=== PATIENT | female | born 1950 | race Caucasian/White ===

== ENCOUNTER → 2016-12-06 | Day surgery (SDC) | payer MEDICARE ==
[~2016-12-06] MED LIST: ACETAMINOPHEN 1000 MG/100 ML VIAL IV ONE; BUPIVACAINE/EPINEPHRINE 0.25% 50 ML VIAL ONE; CALC500T17 PO; CIPR-9 PO; HYOS0.37 PO; LACTATED RINGER'S 1000 ML INJ 1,000 ML ONE; LIDOCAINE 1%/EPINEPHrine 1:100,000 SOLN 20 ML VIAL ONE; MELA1TAB18 PO; METR-1 PO; MIDAZOLAM HCL 2 MG/2 ML VIAL ONE; ONDANSETRON HCL 4 MG/2 ML VIAL IV PUSH ONE; PROBCAP11 PO; PROPOFOL 200 MG/20 ML AMP IV ONE; SACC1CAP3 PO; ZOFR4TAB3 SL; ceFAZolin 2 GM PREMIX 50 ML ONE; metroNIDAZOLE 500 MG INJ 100 ML IV ONE
--- NOTE | 2016-12-06 12:23 | TN ---
cc: CARMEL FRENCH MD DATE OF SURGERY: 12/06/2016 PREOPERATIVE DIAGNOSIS Non-healing abdominal surgical wound. POSTOPERATIVE DIAGNOSIS Non-healing abdominal surgical wound. PROCEDURE Revision of abdominal scar. SURGEON Carmel French MAP MOUNTER Manuel Adkins, R-1, Jett, MS III, and Staff. ANESTHESIA General anesthesia via LMA. SPECIMENS None. ESTIMATED BLOOD LOSS 5 cc. PROCEDURE IN DETAIL The patient was taken to the operating room, placed in a supine position. General anesthesia via LMA was induced. The abdomen was prepped and draped in the usual sterile fashion. The patient received perioperative antibiotics. A timeout was performed to verify correct patient, procedure and site. The patient had a scar in the left abdomen from a sigmoid colectomy about three months ago. The medial 3 cm of the wound was not healing well and was causing the patient some discomfort. There was fascial suture visible in the office on her last visit. I performed a 3 cm ellipse around this non-healing area and removed the scar, skin and subcutaneous tissue down to the level of the fascia. The lateral edges were elevated by making small subcutaneous flaps just superior to the fascia. Hemostasis was achieved. The skin was closed with interrupted 3-0 Prolene vertical mattress sutures. Sterile dressing was applied. The patient tolerated the procedure well, was extubated and taken to PACU in stable condition. Carmel French MD JPD/ZAHIDA /10:52 AM /12:15 PM
== END | disposition home or self-care (01) ==
LOC: ESDC 08:04
PROVIDERS: ATTEND Surgery
DX: L90.5 Scar conditions and fibrosis of skin (principal); T81.89XA Other complications of procedures, not elsewhere classified, initial encounter
CPT/HCPCS: 00400; 11403; J0131; J0690; J2250; J2405; J3010; J7120

== ENCOUNTER 2017-09-20 17:22 | Emergency (ER) | payer MEDICARE ==
[~2017-09-20] VITALS: Ht 166.4 cm; Wt 62.1 kg
[~2017-09-20 17:22] MED LIST changes: -ACETAMINOPHEN 1000 MG/100 ML VIAL IV ONE; -BUPIVACAINE/EPINEPHRINE 0.25% 50 ML VIAL ONE; -LACTATED RINGER'S 1000 ML INJ 1,000 ML ONE; -LIDOCAINE 1%/EPINEPHrine 1:100,000 SOLN 20 ML VIAL ONE; -MIDAZOLAM HCL 2 MG/2 ML VIAL ONE; -ONDANSETRON HCL 4 MG/2 ML VIAL IV PUSH ONE; -PROPOFOL 200 MG/20 ML AMP IV ONE; -ceFAZolin 2 GM PREMIX 50 ML ONE; -metroNIDAZOLE 500 MG INJ 100 ML IV ONE
[2017-09-20 17:28] VITALS: BP 157/72; PULSE 99; RESP 18; TEMP 98.8; O2SAT 93
[2017-09-20] MEDS ORDERED: ALBUTEROL INHALER (17:38)
[2017-09-20] MEDS ORDERED: ACETAMINOPHEN 325 MG TAB PO ONE (17:45)
[2017-09-20] MEDS ORDERED: methylPREDNISolone SOD SUCC 125 MG/2 ML VIAL IV PUSH ONE (17:45)
[2017-09-20] MEDS ORDERED: SODIUM CHLORIDE 0.9% FLUSH 10 ML FLUSH IVF PRN (17:45)
[2017-09-20] MEDS ORDERED: SODIUM CHLOR 0.9% 1000 ML INJ 1,000 ML IV ONE (17:45)
--- NOTE | 2017-09-20 17:48 | PD ---
HPI . Cough Chief Complaint: Cold / Flu Symptoms Time Seen by Provider: 17:37 Travel History International Travel<30 days: No Contact w/Intl Traveler<30days: No Traveled to known affect area: No History of Present Illness HPI Patient presents with a chief complaint of cough and fever. She states that she had the onset of cold symptoms approximately 4 days ago. She started running a fever today. MAXIMUM TEMPERATURE was 101 at home just prior to presentation. She states that she has had uterine production but is not currently able to get anything up. She states that she used her albuterol inhaler at home initially with relief of her cough and chest congestion. However, it is no longer helping. Her symptoms are mild. PFSH Past Medical History Anxiety: No Depression: No Cancer: No Cardiovascular Problems: No Chemotherapy: No Diabetes: No Patient Takes Glucophage: No Diminished Hearing: No Diverticulitis: Yes Endocrine: No Gastrointestinal Disorders: Yes (DIVERTICULITIS) Genitourinary: Yes (HEMATURIA; UTI) Hepatitis: No Hiatal Hernia: No Hypertension: No Immune Disorder: No Implanted Vascular Access Dvce: No Medical other: No Musculoskeletal: Yes (MENISCUS REPAIR) Neurologic: No Psychiatric: No Reproductive: No Respiratory: Yes (CHILDHOOD ASTHMA) Radiation Therapy: No Thyroid Disease: No ?: Not Menopausal: Yes : 3 Para: 3 Past Surgical History AICD: No Appendectomy: Yes Gynecologic Surgery: Yes (HYSTYERECTOMY) Hysterectomy: Yes Joint Replacement: No Pacemaker: No Other Surgery: Yes (FOOT SURGERY) Social History Alcohol Use: Yes ("OCCASIONALLY") Tobacco Use: Yes (1 PPD) Substance Use: No Allergies-Medications (Allergen,Severity, Reaction): Coded Allergies: nitrofurantoin (Unverified Allergy, Severe, Anaphylaxis, 09/20/17) Reported Meds & Prescriptions Reported Meds & Active Scripts Active Guaifenesin ER 12 HR (Guaifenesin) 1,200 Mg Ronn 1,200 Mg PO BID Prednisone (48) 10 mg tab Dose Pack (Prednisone) 10 Mg Dspk 10 Mg PO DIRECTED Zithromax (Azithromycin) 250 Mg Tab 250 Mg PO DAILY 4 Days starting tomorrow, 09/21 Reported [Albuterol Inhaler] Review of Systems Except as stated in HPI: all other systems reviewed are Neg General / Constitutional: Positive: Fever, Chills HENT: Positive: Congestion Respiratory: Positive: Cough, Shortness of Breath Physical Exam Narrative GENERAL: Awake and alert and in no acute distress. SKIN: Warm and dry. Good color and turgor. HEAD: Normocephalic/atraumatic. EYES: Pupils are equal. Extraocular movements are intact. NECK: Normal range of motion. CARDIOVASCULAR: Regular rate and rhythm. RESPIRATORY: Nonlabored respirations. Diffuse expiratory wheezing. MUSCULOSKELETAL: Atraumatic. NEUROLOGICAL: Nonfocal. PSYCHIATRIC: Appropriate mood and affect. Data Data Last Documented VS Vital Signs Date Time Temp Pulse Resp B/P (MAP) Pulse Ox O2 Delivery O2 Flow Rate FiO2 09/20/17 18:49 16 134/61 (85) 97 Room Air 09/20/17 17:28 98.8 99 Orders Orders Basic Metabolic Panel (Bmp) (09/20/17 17:41) Complete Blood Count With Diff (09/20/17 17:41) Lactic Acid Sepsis Protocol (09/20/17 17:41) Blood Culture (09/20/17 17:41) Chest, Single Ap (09/20/17 17:41) Iv Access Insert/Monitor (09/20/17 17:41) Sodium Chloride 0.9% Flush (Ns Flush) (09/20/17 17:45) Acetaminophen (Tylenol) (09/20/17 17:45) Albuterol-Ipratropium Neb (Duoneb Neb) (09/20/17 17:45) Methylprednisolone So Succ Inj (Solumedr (09/20/17 17:45) Sodium Chlor 0.9% 1000 Ml Inj (Ns 1000 M (09/20/17 17:45) Azithromycin (Zithromax) (09/20/17 18:45) Labs Laboratory Tests Test 09/20/17 17:55 White Blood Count 10.5 TH/MM3 Red Blood Count 4.48 MIL/MM3 Hemoglobin 13.3 GM/DL Hematocrit 40.9 % Mean Corpuscular Volume 91.4 FL Mean Corpuscular Hemoglobin 29.8 PG Mean Corpuscular Hemoglobin Concent 32.6 % Red Cell Distribution Width 13.3 % Platelet Count 210 TH/MM3 Mean Platelet Volume 7.9 FL Neutrophils (%) (Auto) 81.7 % Lymphocytes (%) (Auto) 10.2 % Monocytes (%) (Auto) 6.4 % Eosinophils (%) (Auto) 0.6 % Basophils (%) (Auto) 1.1 % Neutrophils # (Auto) 8.5 TH/MM3 Lymphocytes # (Auto) 1.1 TH/MM3 Monocytes # (Auto) 0.7 TH/MM3 Eosinophils # (Auto) 0.1 TH/MM3 Basophils # (Auto) 0.1 TH/MM3 CBC Comment DIFF FINAL Differential Comment Blood Urea Nitrogen 15 MG/DL Creatinine 0.77 MG/DL Random Glucose 119 MG/DL Calcium Level 9.0 MG/DL Sodium Level 139 MEQ/L Potassium Level 4.1 MEQ/L Chloride Level 105 MEQ/L Carbon Dioxide Level 26.4 MEQ/L Anion Gap 8 MEQ/L Estimat Glomerular Filtration Rate 74 ML/MIN Lactic Acid Level 1.1 mmol/L MDM Medical Decision Making Medical Screen Exam Complete: Yes Emergency Medical Condition: Yes Medical Record Reviewed: Yes (medical history significant for diverticulitis status post sigmoid colectomy.) Differential Diagnosis My differential diagnosis includes but is not limited to asthma, COPD, bronchitis, pneumonia, CHF Narrative Course This patient presents stating that she developed cold about 4 days ago. The cold has "settled in her chest." Albuterol MDI is not helping. She has diffuse expiratory wheezing on exam. She reports a fever of 101 at home. I have ordered a workup to rule out pneumonia. In the meantime, she'll be treated with DuoNeb since Solu-Medrol. CBC & BMP Diagram 09/20/17 17:55 Calcium Level 9.0 LA 1.1 CXR is negative for infiltrate. The chest x-ray was independently viewed by me. The patient's respiratory status is much improved. She'll be discharged home with a steroid taper, Zithromax and guaifenesin Last Impressions Chest X-Ray 09/20/17 1621 Signed Impressions: Service Date/Time: Wednesday, September 20, 2017 17:58 - CONCLUSION: No acute cardiopulmonary disease identified. Stephan Javier MD Sepsis Criteria SIRS Criteria (2 or more): Temp > 100.9 or < 96.8 (based upon her temperature of 101 at home), Heart rate over 90 Sepsis Criteria (SIRS+source): Infect source susp/known Criteria Outcome: Meets SIRS criteria, Meets sepsis criteria Diagnosis Primary Impression: Bronchitis Additional Impression: Sepsis Qualified Codes: A41.9 - Sepsis, unspecified organism Patient Instructions: Acute Bronchitis (DC), General Instructions Med/Other Pt SpecificInfo: Prescription(s) given Scripts Guaifenesin ER 12 HR (Guaifenesin ER 12 HR) 1,200 Mg Ronn 1200 MG PO BID for Chest Congestion/Cough, #30 TAB 0 Refills Prov: Lynette Webb MD 09/20/17 Prednisone (48) 10 mg tab Dose Pack (Prednisone (48) 10 mg tab Dose Pack) 10 Mg Dspk 10 MG PO DIRECTED for Inflammation, #1 DSPK 0 Refills Prov: Lynette Webb MD 09/20/17 Azithromycin (Zithromax) 250 Mg Tab 250 MG PO DAILY for Infection for 4 Days, #4 TAB 0 Refills starting tomorrow, 09/21 Prov: Lynette Webb MD 09/20/17 Disposition: 01 DISCHARGE HOME Condition: Stable Lynette Webb MD Sep 20, 2017 17:48
[2017-09-20] MEDS: RESP: ALBUTEROL 2.5 MG/IPRATROPIUM 0.5 MG NEB (SCH) INH ×2 (17:51→17:52)
[2017-09-20 18:11] LABS: AUTOMATED NEUTROPHIL # 8.5 TH/MM3 (1.8-7.7); BASOPHIL # 0.1 TH/MM3 (0-0.2); BASOPHIL % 1.1 % (0.0-2.0); EOSINOPHIL # 0.1 TH/MM3 (0-0.4); EOSINOPHIL % 0.6 % (0.0-4.0); HEMATOCRIT 40.9 % (35.0-46.0); HEMOGLOBIN 13.3 GM/DL (11.6-15.3); LYMPH % 10.2 % (9.0-44.0); LYMPHOCYTE # 1.1 TH/MM3 (1.0-4.8); MEAN CELL VOLUME 91.4 FL (80.0-100.0); MEAN CORPUSCULAR HEMOGLOBIN 29.8 PG (27.0-34.0); MEAN CORPUSCULAR HGB CONC 32.6 % (32.0-36.0); MEAN PLATELET VOLUME 7.9 FL (7.0-11.0); MONO % 6.4 % (0.0-8.0); MONOCYTE # 0.7 TH/MM3 (0-0.9); NEUT % 81.7 % (16.0-70.0); PLATELET COUNT 210 TH/MM3 (150-450); RED BLOOD COUNT 4.48 MIL/MM3 (4.00-5.30); RED CELL DISTRIBUTION WIDTH 13.3 % (11.6-17.2); WHITE BLOOD COUNT 10.5 TH/MM3 (4.0-11.0)
[2017-09-20 18:19] LABS: BICARBONATE 26.4 MEQ/L (21.0-32.0)
[2017-09-20 18:22] LABS: CREATININE 0.77 MG/DL (0.50-1.00)
[2017-09-20] MEDS ORDERED: ZITH250T PO (18:32)
[2017-09-20] MEDS ORDERED: GUAI10TA PO (18:32)
[2017-09-20] MEDS ORDERED: PRED10PA2 PO (18:32)
[2017-09-20] MEDS ORDERED: AZITHROMYCIN 250 MG TAB PO ONE (18:45)
[2017-09-20 18:49] VITALS: BP 134/61; RESP 16; O2SAT 97
--- NOTE | 2017-09-20 19:01 | RADRPT ---
EXAM DATE/TIME: 09/20/2017 17:58 [facility] COMPARISON: No previous studies available for comparison. INDICATIONS : Cough and shortness of breath. MEDICAL HISTORY : Diverticulitis. Asthma. SURGICAL HISTORY : Appendectomy. Hysterectomy. ENCOUNTER: Initial ACUITY: 4 - 6 days PAIN SCORE: 3/10 LOCATION: Left chest FINDINGS: Single AP view of the chest. The lungs are clear. Cardiomediastinal silhouette within normal limits. No evidence of pleural effusion or pneumothorax. CONCLUSION: No acute cardiopulmonary disease identified. Stephan Javier MD on September 20, 2017 at 18:59 Board Certified Radiologist. This report was verified electronically.
== END 2017-09-20 19:24 | disposition home or self-care (01) ==
LOC: PHED 17:22
DX: J40 Bronchitis, not specified as acute or chronic (principal); A41.9 Sepsis, unspecified organism; J45.909 Unspecified asthma, uncomplicated; Z87.19 Personal history of other diseases of the digestive system
CPT/HCPCS: 71010; 80048; 83605; 85025; 87040; 94640; 94664; 96361; 96374; 99284; J2930; J7030

== ENCOUNTER 2017-09-25 13:00 | Observation (INO) | payer MEDICARE ==
[~2017-09-25 13:00] MED LIST changes: +ALBUTEROL INHALER; -CALC500T17 PO; -CIPR-9 PO; +GUAI10TA PO; -HYOS0.37 PO; -MELA1TAB18 PO; -METR-1 PO; +PRED10PA2 PO; -PROBCAP11 PO; -SACC1CAP3 PO; +ZITH250T PO; -ZOFR4TAB3 SL
[2017-09-25 13:03] VITALS: BP 167/71; PULSE 110; RESP 16; TEMP 98.3; O2SAT 95
[2017-09-25 13:26] VITALS: PULSE 68; RESP 24; O2SAT 95
--- NOTE | 2017-09-25 13:53 | PD ---
HPI Chief Complaint: Respiratory Symptoms Time Seen by Provider: 13:30 Travel History International Travel<30 days: No Contact w/Intl Traveler<30days: No Traveled to known affect area: No History of Present Illness HPI 67-year-old female, with history of asthma, presents to the emergency department with worsening of chest tightness, cough, shortness of breath. She was seen here on 1223, diagnosed with bronchitis, and given prescriptions for penicillin, prednisone Dosepak, Z-Roger which she has taken. Symptoms are worsening since Friday night. Denies continued fevers. Had fever over the weekend with MAXIMUM TEMPERATURE 101.0. Says she is not in any pain and denies chest pain. Denies history of DVT or PE. Denies recent surgeries. Denies leg edema. Denies hemoptysis. Recently traveled from [place] on 09/16. Denies anticoagulant therapy. Feeling of something is sitting on her chest. Shortness of breath is worse with activity and better at rest. Has been using albuterol inhaler with minimal relief of symptoms. History of asthma. Primary care provider Is Dr. Singleton in [place]. Allergies to Macrobid. Has no other medical complaints. No other modifying factors or associated signs and symptoms. PFSH Past Medical History Asthma: Yes Anxiety: No Depression: No Cancer: No Cardiovascular Problems: No Chemotherapy: No Diabetes: No Diminished Hearing: No Diverticulitis: Yes Endocrine: No Gastrointestinal Disorders: Yes (DIVERTICULITIS) Genitourinary: Yes (HEMATURIA; UTI) Hepatitis: No Hiatal Hernia: No Hypertension: No Immune Disorder: No Implanted Vascular Access Dvce: No Medical other: No Musculoskeletal: Yes (MENISCUS REPAIR) Neurologic: No Psychiatric: No Reproductive: No Respiratory: Yes (CHILDHOOD ASTHMA) Radiation Therapy: No Thyroid Disease: No Menopausal: Yes : 3 Para: 3 Past Surgical History AICD: No Appendectomy: Yes Genitourinary Surgery: Yes (COLON RESECTION) Gynecologic Surgery: Yes (HYSTYERECTOMY) Hysterectomy: Yes Joint Replacement: No Pacemaker: No Other Surgery: Yes (FOOT SURGERY) Social History Alcohol Use: Yes ("OCCASIONALLY") Tobacco Use: Yes (1 PPD) Substance Use: No Allergies-Medications (Allergen,Severity, Reaction): Coded Allergies: nitrofurantoin (Unverified Allergy, Severe, Anaphylaxis, 09/25/17) Reported Meds & Prescriptions Reported Meds & Active Scripts Active Guaifenesin ER 12 HR (Guaifenesin) 1,200 Mg Ronn 1,200 Mg PO BID Prednisone (48) 10 mg tab Dose Pack (Prednisone) 10 Mg Dspk 10 Mg PO DIRECTED Zithromax (Azithromycin) 250 Mg Tab 250 Mg PO DAILY 4 Days starting tomorrow, 09/21 Reported [Albuterol Inhaler] Review of Systems Except as stated in HPI: all other systems reviewed are Neg Physical Exam Narrative GENERAL: Well-nourished, well-developed female patient; afebrile, nontoxic-appearing; shortness of breath noted noticed with talking SKIN: Warm and dry. HEAD: Atraumatic. Normocephalic. EYES: Pupils equal and round. No scleral icterus. No injection or drainage. ENT: Mucosa pink and moist. No erythema or exudates. No uvular edema. No uvular , palatal, or tonsillar deviation. Airway patent. Nares without nasal blood, purulent drainage or septal hematoma. EARS: Bilateral pinnae and external canals appear within normal limits. Bilateral tympanic membranes without erythema, dullness or perforation. NECK: Trachea midline. No lymphadenopathy. CARDIOVASCULAR: Regular rate and rhythm. No murmur appreciated. RESPIRATORY: No accessory muscle use. Lungs with Wheezing and rhonci throughout to auscultation. Breath sounds equal bilaterally. Mild tachypnea; without retractions retractions or tachypnea. No Audible wheezing noted. GASTROINTESTINAL: Abdomen soft, non-tender, nondistended. Hepatic and splenic margins not palpable. Bowel sounds are active 4 quadrants. MUSCULOSKELETAL: No obvious deformities. No clubbing. No cyanosis. No edema. NEUROLOGICAL: Awake and alert. Oriented 3. No obvious cranial nerve deficits. Motor grossly within normal limits. Normal speech. Moves all extremities. 5/5 strength to all extremities. PSYCHIATRIC: Appropriate mood and affect; insight and judgment normal. Data Data Last Documented VS Vital Signs Date Time Temp Pulse Resp B/P (MAP) Pulse Ox O2 Delivery O2 Flow Rate FiO2 09/25/17 14:15 Nasal Cannula 2.50 09/25/17 14:15 97 09/25/17 13:26 68 24 09/25/17 13:03 98.3 Orders Orders Chest, Single Ap (09/25/17 13:42) Albuterol-Ipratropium Neb (Duoneb Neb) (09/25/17 13:45) Electrocardiogram (09/25/17 13:50) Basic Metabolic Panel (Bmp) (09/25/17 13:50) Complete Blood Count With Diff (09/25/17 13:50) Magnesium (Mg) (09/25/17 13:50) Prothrombin Time / Inr (Pt) (09/25/17 13:50) Act Partial Throm Time (Ptt) (09/25/17 13:50) Troponin I (09/25/17 13:50) Ecg Monitoring (09/25/17 13:50) Iv Access Insert/Monitor (09/25/17 13:50) Oximetry (09/25/17 13:50) Oxygen Administration (09/25/17 13:50) Sodium Chloride 0.9% Flush (Ns Flush) (09/25/17 14:00) D-Dimer (09/25/17 13:50) Albuterol Neb (Albuterol Neb) (09/25/17 15:00) Place In Observation (09/25/17 ) Vital Signs (Adult) Q4H (09/25/17 15:32) Activity Oob With Assistance (09/25/17 15:32) Sodium Chloride 0.9% Flush (Ns Flush) (09/25/17 15:45) Sodium Chloride 0.9% Flush (Ns Flush) (09/25/17 21:00) Acetaminophen (Tylenol) (09/25/17 15:45) Ondansetron Inj (Zofran Inj) (09/25/17 15:45) Scd Bilateral/Knee High VINCE.BID (09/25/17 15:32) Naloxone Inj (Narcan Inj) (09/25/17 15:45) Magnesium Hydroxide Liq (Milk Of Magnesi (09/25/17 15:45) Admit Order (Ed Use Only) (09/25/17 15:32) Labs Laboratory Tests Test 09/25/17 14:05 09/25/17 14:10 White Blood Count 14.9 TH/MM3 Red Blood Count 4.31 MIL/MM3 Hemoglobin 13.0 GM/DL Hematocrit 39.3 % Mean Corpuscular Volume 91.1 FL Mean Corpuscular Hemoglobin 30.3 PG Mean Corpuscular Hemoglobin Concent 33.2 % Red Cell Distribution Width 13.4 % Platelet Count 311 TH/MM3 Mean Platelet Volume 7.0 FL Neutrophils (%) (Auto) 81.8 % Lymphocytes (%) (Auto) 10.1 % Monocytes (%) (Auto) 8.0 % Eosinophils (%) (Auto) 0.0 % Basophils (%) (Auto) 0.1 % Neutrophils # (Auto) 12.2 TH/MM3 Lymphocytes # (Auto) 1.5 TH/MM3 Monocytes # (Auto) 1.2 TH/MM3 Eosinophils # (Auto) 0.0 TH/MM3 Basophils # (Auto) 0.0 TH/MM3 CBC Comment AUTO DIFF Differential Total Cells Counted 100 Neutrophils % (Manual) 82 % Band Neutrophils % 2 % Lymphocytes % 4 % Monocytes % 10 % Neutrophils # (Manual) 12.8 TH/MM3 Metamyelocytes 2 % Differential Comment FINAL DIFF MANUAL Platelet Estimate NORMAL Platelet Morphology Comment NORMAL Keratocytes OCC Blood Urea Nitrogen 20 MG/DL Creatinine 0.65 MG/DL Random Glucose 107 MG/DL Calcium Level 8.8 MG/DL Magnesium Level 2.3 MG/DL Sodium Level 144 MEQ/L Potassium Level 4.1 MEQ/L Chloride Level 108 MEQ/L Carbon Dioxide Level 25.7 MEQ/L Anion Gap 10 MEQ/L Estimat Glomerular Filtration Rate 90 ML/MIN Troponin I LESS THAN 0.02 NG/ML Prothrombin Time 9.9 SEC Prothromb Time International Ratio 1.0 RATIO Activated Partial Thromboplast Time 20.7 SEC D-Dimer Quantitative (PE/DVT) 0.27 MG/L FEU MDM Medical Decision Making Medical Screen Exam Complete: Yes Emergency Medical Condition: Yes Medical Record Reviewed: Yes Differential Diagnosis Bronchitis, asthma exacerbation, pneumonia, influenza PE Narrative Course 67-year-old female with a story of asthma with continued wheezing, cough, chest tightness after being seen and treated on 1223 with guaifenesin, prednisone Dosepak, Z-Roger. On 1223 CBC, BMP, lactic acid, chest x-ray were all unremarkable. Patient placed on cardiopulmonary monitor. Patient placed on 2 L nasal cannula. IV site obtained. I discussed the patient with Dr. Rosario and she agrees to plan of care. CBC, BMP, troponin, d-dimer, chest x-ray, DuoNeb 3 ordered. 1453: Chest x-ray concludes: Chest X-Ray 09/25/17 1342 Signed Impressions: Service Date/Time: August 14:02 - CONCLUSION: No acute disease. No significant change has occurred. Tahir Noyola MD [id number]: On reexamination the patient reports improvement. Lungs with diffuse wheezing throughout. Oxygen saturation is 94% 2 L nasal cannula. Albuterol nebulizer 3 ordered. CBC 14.7 and a slightly elevated from 1223 visit. BMP unremarkable. Troponin less than 0.02. D-dimer 0.27. Patient will be admitted for outpatient treatment failure and asthma exacerbation. Dr. Rosario agrees. Call placed for patient admission. 1533: Report given to RENETTA Gamble for patient admission. Physician Communication Physician Communication RENETTA Gamble Diagnosis Primary Impression: Asthma exacerbation Qualified Codes: J45.901 - Unspecified asthma with (acute) exacerbation Additional Impression: Failure of outpatient treatment Admitting Information Admitting Physician Requests: Observation Anay Posey [facility] Sep 25, 2017 13:53
[2017-09-25] MEDS: RESP: ALBUTEROL 2.5 MG/IPRATROPIUM 0.5 MG NEB (SCH) INH (13:56)
[2017-09-25] MEDS ORDERED: SODIUM CHLORIDE 0.9% FLUSH 10 ML FLUSH IVF PRN (14:00)
[2017-09-25 14:15] VITALS: O2SAT 97
[2017-09-25 14:27] LABS: AUTOMATED NEUTROPHIL # 12.2 TH/MM3 (1.8-7.7); BASOPHIL % 0.1 % (0.0-2.0); HEMATOCRIT 39.3 % (35.0-46.0); LYMPH % 10.1 % (9.0-44.0); LYMPHOCYTE # 1.5 TH/MM3 (1.0-4.8); MEAN CELL VOLUME 91.1 FL (80.0-100.0); MEAN CORPUSCULAR HEMOGLOBIN 30.3 PG (27.0-34.0); MEAN CORPUSCULAR HGB CONC 33.2 % (32.0-36.0); MONOCYTE # 1.2 TH/MM3 (0-0.9); NEUT % 81.8 % (16.0-70.0); PLATELET COUNT 311 TH/MM3 (150-450); RED BLOOD COUNT 4.31 MIL/MM3 (4.00-5.30); RED CELL DISTRIBUTION WIDTH 13.4 % (11.6-17.2); WHITE BLOOD COUNT 14.9 TH/MM3 (4.0-11.0)
--- NOTE | 2017-09-25 14:32 | RADRPT ---
EXAM DATE/TIME: 09/25/2017 14:02 [facility] COMPARISON: CHEST SINGLE AP, September 20, 2017, 17:58. INDICATIONS : Wheezing, short of breath. MEDICAL HISTORY : bronchitis, asthma SURGICAL HISTORY : None. ENCOUNTER: Initial ACUITY: 4 - 6 days PAIN SCORE: 0/10 LOCATION: Bilateral chest FINDINGS: A single view of the chest demonstrates the lungs to be symmetrically aerated without evidence of mas s, infiltrate or effusion. There is hyperaeration bilaterally. The cardiomediastinal contours are un remarkable. Osseous structures are intact. CONCLUSION: No acute disease. No significant change has occurred. Tahir Noyola MD on September 25, 2017 at 14:30 Board Certified Radiologist. This report was verified electronically.
[2017-09-25 14:48] LABS: D-DIMER 0.27 MG/L FEU (0.00-0.50); PROTHROMBIN TIME - PATIENT 9.9 SEC (9.8-11.6)
[2017-09-25 14:48] LABS: BICARBONATE 25.7 MEQ/L (21.0-32.0); BLOOD UREA NITROGEN 20 MG/DL (7-18); CALCIUM 8.8 MG/DL (8.5-10.1); CHLORIDE 108 MEQ/L (98-107); CREATININE 0.65 MG/DL (0.50-1.00); GLOMERULAR FILTRATION RATE 90 ML/MIN (>89); GLUCOSE,RANDOM 107 MG/DL (74-106); MAGNESIUM 2.3 MG/DL (1.5-2.5); SODIUM (NA) 144 MEQ/L (136-145)
[2017-09-25 14:51] LABS: TROPONIN I LESS THAN 0.02 NG/ML (0.02-0.05)
[2017-09-25 15:04] LABS: BANDS 2 % (0-6); LYMPHOCYTES 4 % (9-44); METAMYELOCYTES 2 % (0-1); MONOCYTES 10 % (0-8); NEUTROPHIL # MANUAL DIFF 12.8 TH/MM3 (1.8-7.7); POLYS (SEG NEUTROPHILS) 82 % (16-70)
[2017-09-25 15:05] LABS: KERATOCYTES OCC (NORMAL)
[2017-09-25] MEDS: RESP: ALBUTEROL 2.5 MG/3 ML NEB (SCH) INH (15:09)
[2017-09-25] MEDS ORDERED: ONDANSETRON HCL 4 MG/2 ML VIAL IVP PRN (15:45)
[2017-09-25] MEDS ORDERED: ACETAMINOPHEN 325 MG TAB PO PRN (15:45)
[2017-09-25] MEDS ORDERED: RESP: ALBUTEROL 2.5 MG/3 ML NEB (PRN) NEB (15:45)
[2017-09-25] MEDS ORDERED: MAGNESIUM HYDROXIDE SUSP 30 ML CUP PO PRN (15:45)
[2017-09-25] MEDS ORDERED: NALOXONE HCL 0.4 MG/ML AMP IV PUSH PRN (15:45)
[2017-09-25] MEDS: RESP: ALBUTEROL 2.5 MG/IPRATROPIUM 0.5 MG NEB (SCH) NEB ×3 (15:59→23:18)
[2017-09-25] MEDS ORDERED: AZITHROMYCIN INJ 500 MG in SODIUM CHLOR 0.9% 250 ML INJ 250 ML IV SCH (16:00)
[2017-09-25 16:27] VITALS: BP 141/63; PULSE 78; RESP 20; TEMP 98.2; O2SAT 94
[2017-09-25] MEDS: methylPREDNISolone SOD SUCC 40 MG/1 ML VIAL IV PUSH SCH (16:44)
[2017-09-25] MEDS: LEVOFLOXACIN 750 MG PREMIX INJ 150 ML IV SCH (16:44)
--- NOTE | 2017-09-25 18:04 | HHI.HP ---
[facility] Service [place] [facility] Primary Care Physician Tona Forte MD Admission Diagnosis outpatient treatment failure, asthma exacerbation Diagnoses: Chief Complaint: Shortness of breathing Travel History International Travel<30 Days: No Contact w/Intl Traveler <30 Da: No Traveled to Known Affected Are: No History of Present Illness This is a 67-year-old female past medical history of asthma who presented with shortness of breathing. Patient stated that she was seen prior from this admission in the emergency department in which she was diagnosed with acute bronchitis and was put on azithromycin and prednisone Dosepak. She says she not get better so she went back to the emergency department. Patient stated shortness of breathing worsened and she has a cough. Denies any fevers or chills. Patient also continues to smoke about half a pack per day for the past 50 years. When she presented in emergency department her oxygenation was 95% on room air. All other review of system reviewed and negative. Past Family Social History Past Medical History Asthma Past Surgical History Appendectomy Resection of the bowel secondary to diverticulitis Tonsillectomy Left knee repair Hysterectomy Reported Medications Reported Meds & Active Scripts Active Guaifenesin ER 12 HR (Guaifenesin) 1,200 Mg Ronn 1,200 Mg PO BID Prednisone (48) 10 mg tab Dose Pack (Prednisone) 10 Mg Dspk 10 Mg PO DIRECTED Zithromax (Azithromycin) 250 Mg Tab 250 Mg PO DAILY 4 Days starting tomorrow, 09/21 Reported [Albuterol Inhaler] Allergies: Coded Allergies: nitrofurantoin (Unverified Allergy, Severe, Anaphylaxis, 09/25/17) Active Ordered Medications Current Medications Albuterol/ Ipratropium (Duoneb Neb) 1 ampule Q15M INH Last administered on t 13:56; Start 09/25/17 at 13:45; Stop 09/25/17 at 14:16; Status DC Sodium Chloride (NS Flush) 2 ml UNSCH PRN IVF FLUSH AFTER USING IV ACCESS; Start 09/25/17 at 14:00; Stop 09/25/17 at 15:36; Status DC Albuterol Sulfate (Albuterol Neb) 2.5 mg Q15M INH Last administered on 15:09; Start 09/25/17 at 15:00; Stop 09/25/17 at 15:31; Status DC Sodium Chloride (NS Flush) 2 ml UNSCH PRN IV FLUSH FLUSH AFTER USING IV ACCESS ; Start 09/25/17 at 15:45 Sodium Chloride (NS Flush) 2 ml BID IV FLUSH ; Start 09/25/17 at 21:00 Acetaminophen (Tylenol) 650 mg Q4H PRN PO TEMP > 100.4; Start 09/25/17 at 15: 45 Ondansetron HCl (Zofran Inj) 4 mg Q6H PRN IVP NAUSEA OR VOMITING; Start at 15:45 Naloxone HCl (Narcan Inj) 0.4 mg UNSCH PRN IV PUSH SEE LABEL COMMENTS; Start 09/25/17 at 15:45 Magnesium Hydroxide (Milk Of Ryne Carmichaelq) 30 ml Q12H PRN PO Mild constipation ; Start 09/25/17 at 15:45 Albuterol/ Ipratropium (Duoneb Neb) 1 ampule Q4HR NEB NEB ; Start 09/25/17 at 16:00 Albuterol Sulfate (Albuterol Neb) 2.5 mg Q6HR NEB PRN NEB SOB/wheezing; Start 09/25/17 at 15:45 Azithromycin 500 mg/Sodium Chloride 250 ml @ 250 mls/hr Q24H IV ; Start at 16:00; Stop 09/25/17 at 16:00; Status DC Methylprednisolone Sodium Succinate (SoluMEDROL INJ) 40 mg Q6HR IV PUSH Last administered on 09/25/17 16:44; Start 09/25/17 at 18:00 Levofloxacin/ Dextrose 150 ml @ 100 mls/hr Q24H IV Last administered on 16:44; Start 09/25/17 at 16:00 Family History Father had a history of COPD. Social History Smokes half a pack per day of tobacco for past 50 years. Denies any alcohol or illicit drug use. Physical Exam Vital Signs Vital Signs Date Time Temp Pulse Resp B/P (MAP) Pulse Ox O2 Delivery O2 Flow Rate FiO2 09/25/17 16:27 98.2 78 20 141/63 (89) 94 09/25/17 14:15 Nasal Cannula 2.50 09/25/17 14:15 97 Nasal Cannula 2.50 09/25/17 13:26 68 24 95 Room Air 09/25/17 13:03 98.3 110 16 167/71 (103) 95 Physical Exam GENERAL: This is thin female in no apparent distress. SKIN: No rashes, ecchymoses or lesions. Cool and dry. HEAD: Atraumatic. Normocephalic. No temporal or scalp tenderness. EYES: Pupils equal round and reactive. Extraocular motions intact. No scleral icterus. No injection or drainage. ENT: Nose without bleeding, purulent drainage or septal hematoma. Throat without erythema, tonsillar hypertrophy or exudate. Uvula midline. Airway patent. NECK: Trachea midline. No JVD or lymphadenopathy. Supple, nontender, no meningeal signs. CARDIOVASCULAR: Regular rate and rhythm without murmurs, gallops, or rubs. RESPIRATORY: Diffuse rhonchi and mild expiratory wheezing. No crackles noted. GASTROINTESTINAL: Abdomen soft, non-tender, nondistended. No hepato-splenomegaly , or palpable masses. No guarding. MUSCULOSKELETAL: Extremities without clubbing, cyanosis, or edema. No joint tenderness, effusion, or edema noted. No calf tenderness. Negative Homans sign bilaterally. NEUROLOGICAL: Awake and alert. Cranial nerves II through XII intact. Motor and sensory grossly within normal limits. Five out of 5 muscle strength in all muscle groups. Normal speech. Laboratory Laboratory Tests Test 09/25/17 14:05 09/25/17 14:10 White Blood Count 14.9 Red Blood Count 4.31 Hemoglobin 13.0 Hematocrit 39.3 Mean Corpuscular Volume 91.1 Mean Corpuscular Hemoglobin 30.3 Mean Corpuscular Hemoglobin Concent 33.2 Red Cell Distribution Width 13.4 Platelet Count 311 Mean Platelet Volume 7.0 Neutrophils (%) (Auto) 81.8 Lymphocytes (%) (Auto) 10.1 Monocytes (%) (Auto) 8.0 Eosinophils (%) (Auto) 0.0 Basophils (%) (Auto) 0.1 Neutrophils # (Auto) 12.2 Lymphocytes # (Auto) 1.5 Monocytes # (Auto) 1.2 Eosinophils # (Auto) 0.0 Basophils # (Auto) 0.0 CBC Comment AUTO DIFF Differential Total Cells Counted 100 Neutrophils % (Manual) 82 Band Neutrophils % 2 Lymphocytes % 4 Monocytes % 10 Neutrophils # (Manual) 12.8 Metamyelocytes 2 Differential Comment FINAL DIFF MANUAL Platelet Estimate NORMAL Platelet Morphology Comment NORMAL Keratocytes OCC Blood Urea Nitrogen 20 Creatinine 0.65 Random Glucose 107 Calcium Level 8.8 Magnesium Level 2.3 Sodium Level 144 Potassium Level 4.1 Chloride Level 108 Carbon Dioxide Level 25.7 Anion Gap 10 Estimat Glomerular Filtration Rate 90 Troponin I LESS THAN 0.02 Prothrombin Time 9.9 Prothromb Time International Ratio 1.0 Activated Partial Thromboplast Time 20.7 D-Dimer Quantitative (PE/DVT) 0.27 Result Diagram: 09/25/17 1405 09/25/17 1405 Imaging Last Impressions Chest X-Ray 09/25/17 1342 Signed Impressions: Service Date/Time: , September 25, 2017 14:02 - CONCLUSION: No acute disease. No significant change has occurred. MD Jenni Rust VTE Risk Assessment Caprinwing VTE Risk Assessment: Mod/High Risk (score >= 2) Caprini Risk Assessment Model Point Value = 1 Point Value = 2 Point Value = 3 Point Value = 5 Age 41-60 Minor surgery BMI > 25 kg/m2 Swollen legs Varicose veins or History of unexplained or recurrent spontaneous Oral contraceptives or hormone replacement Sepsis (< 1 month) Serious lung disease, including pneumonia (< 1 month) Abnormal pulmonary function Acute myocardial infarction Congestive heart failure (< 1 month) History of inflammatory bowel disease Medical patient at bed rest Age 61-74 Arthroscopic surgery Major open surgery (> 45 min) Laparoscopic surgery (> 45 min) Malignancy Confined to bed (> 72 hours) Immobilizing plaster cast Central venous access Age >= 75 History of VTE Family history of VTE Factor V Leiden Prothrombin [id number] Lupus anticoagulant Anticardiolipin antibodies Elevated serum homocysteine Heparin-induced thrombocytopenia Other congenital or acquired thrombophilia Stroke (< 1 month) Elective arthroplasty Hip, pelvis, or leg fracture Acute spinal cord injury (< 1 month) Prophylaxis Regimen Total Risk Factor Score Risk Level Prophylaxis Regimen 0-1 Low Early ambulation 2 Moderate Order ONE of the following: *Sequential Compression Device (SCD) *Heparin 5000 units SQ BID 3-4 Higher Order ONE of the following medications: *Heparin 5000 units SQ TID *Enoxaparin/Lovenox 40 mg SQ daily (WT < 150 kg, CrCl > 30 mL/min) *Enoxaparin/Lovenox 30 mg SQ daily (WT < 150 kg, CrCl > 10-29 mL/min) *Enoxaparin/Lovenox 30 mg SQ BID (WT < 150 kg, CrCl > 30 mL/min) AND/OR *Sequential Compression Device (SCD) 5 or more Highest Order ONE of the following medications: *Heparin 5000 units SQ TID (Preferred with Epidurals) *Enoxaparin/Lovenox 40 mg SQ daily (WT < 150 kg, CrCl > 30 mL/min) *Enoxaparin/Lovenox 30 mg SQ daily (WT < 150 kg, CrCl > 10-29 mL/min) *Enoxaparin/Lovenox 30 mg SQ BID (WT < 150 kg, CrCl > 30 mL/min) AND *Sequential Compression Device (SCD) Assessment and Plan Assessment and Plan 67-year-old female history of asthma and current tobacco use Respiratory failure secondary to COPD versus asthma exacerbation -Failed outpatient therapy. chest xray negative for any pneumonia. -Will start patient on Levaquin, Solu-Medrol, scheduled DuoNeb's, and when necessary albuterol needed. -Monitor clinically. Tobacco dependence -Education on smoking cessation. Patient declined any nicotine patch. Leukocytosis -Secondary to steroid use. DVT prophylaxis -SCDs. Encourage ambulation. Discussed Condition With patient and her Rosa Mon MD Sep 25, 2017 18:04
[2017-09-25 19:24] VITALS: O2SAT 97
[2017-09-25 19:31] VITALS: BP 123/58; PULSE 85; RESP 18; O2SAT 97
[2017-09-25] MEDS: SODIUM CHLORIDE 0.9% FLUSH 10 ML FLUSH IV FLUSH SCH (21:34)
[2017-09-26] VITALS (8 sets, daily range): BP systolic 121–150; BP diastolic 58–67; PULSE 65–78; RESP 18; TEMP 97.9–98.1; O2SAT 92–96
[2017-09-26] MEDS: methylPREDNISolone SOD SUCC 40 MG/1 ML VIAL IV PUSH SCH ×4 (00:09→18:26)
[2017-09-26] MEDS: SODIUM CHLORIDE 0.9% FLUSH 10 ML FLUSH IV FLUSH PRN ×2 (00:10→05:58)
[2017-09-26] MEDS: RESP: ALBUTEROL 2.5 MG/IPRATROPIUM 0.5 MG NEB (SCH) NEB ×6 (02:37→23:29)
[2017-09-26 07:21] LABS: HEMATOCRIT 36.3 % (35.0-46.0); HEMOGLOBIN 12.2 GM/DL (11.6-15.3); MEAN CELL VOLUME 91.7 FL (80.0-100.0); MEAN CORPUSCULAR HEMOGLOBIN 30.7 PG (27.0-34.0); MEAN CORPUSCULAR HGB CONC 33.5 % (32.0-36.0); MEAN PLATELET VOLUME 7.4 FL (7.0-11.0); PLATELET COUNT 303 TH/MM3 (150-450); RED BLOOD COUNT 3.97 MIL/MM3 (4.00-5.30); RED CELL DISTRIBUTION WIDTH 13.4 % (11.6-17.2); WHITE BLOOD COUNT 14.2 TH/MM3 (4.0-11.0)
[2017-09-26 07:31] LABS: BICARBONATE 25.1 MEQ/L (21.0-32.0); CALCIUM 8.7 MG/DL (8.5-10.1); CREATININE 0.72 MG/DL (0.50-1.00)
--- NOTE | 2017-09-26 11:17 | HHI.PR ---
Subjective Remarks Patient's respiratory status is not yet to baseline. She has had improvement since being admitted in starting her treatment. At baseline she does not use oxygen. At this point she is not yet tolerant off oxygen, demonstrating hypoxia. Objective Vital Signs Date Time Temp Pulse Resp B/P (MAP) Pulse Ox O2 Delivery O2 Flow Rate FiO2 09/26/17 08:30 98.1 70 18 127/61 (83) 96 09/26/17 07:46 96 21 09/26/17 06:36 97.9 75 18 150/67 (94) 94 09/26/17 00:16 98.1 77 18 121/60 (80) 96 09/25/17 19:31 85 18 123/58 (79) 97 09/25/17 19:24 97 Nasal Cannula 2.00 09/25/17 16:27 98.2 78 20 141/63 (89) 94 09/25/17 14:15 Nasal Cannula 2.50 09/25/17 14:15 97 Nasal Cannula 2.50 09/25/17 13:26 68 24 95 Room Air 09/25/17 13:03 98.3 110 16 167/71 (103) 95 I/O 09/25/17 09/25/17 09/25/17 09/26/17 09/26/17 09/26/17 07:00 15:00 23:00 07:00 15:00 23:00 Intake Total 800 ml 250 ml Output Total 600 ml 300 ml Balance 200 ml -50 ml Intake Oral 500 ml 250 ml IV Total 300 ml Output Urine Total 600 ml 300 ml Result Diagram: 09/26/17 0559 09/26/17 0559 Other Results GENERAL: NAD, A&Ox3 HEAD: Normocephalic. NECK: Supple, trachea midline. No lymphadenopathy. EYES: No scleral icterus. No injection or drainage. CARDIOVASCULAR: Regular rate and rhythm without murmurs, gallops, or rubs. RESPIRATORY: Breath sounds equal bilaterally. No accessory muscle use. GASTROINTESTINAL: Abdomen soft, non-tender, nondistended. MUSCULOSKELETAL: No cyanosis, or edema. SKIN: Warm and dry. NEURO: No focal neurological deficitis. A/P Problem List: (1) Asthma exacerbation ICD Code: J45.901 - Unspecified asthma with (acute) exacerbation Status: Acute (2) Acute diverticulitis ICD Code: K57.92 - Diverticulitis of intestine, part unspecified, without perforation or abscess without bleeding Status: Acute (3) Failure of outpatient treatment ICD Code: Z78.9 - Other specified health status Status: Acute Assessment and Plan Assessment and Plan 67-year-old female history of asthma and current tobacco use Respiratory failure COPD versus asthma exacerbation Outpatient treatment failure Leukocytosis Continue Levaquin Continue systemic Solu-Medrol Continue albuterol as needed Continue schedule duo nebs Continue oxygen supplementation Follow for improvement Nicotine dependence Patient counseled to quit smoking Patient has declined nicotine patch DVT prophylaxis SCDs Problem Qualifiers (1) Asthma exacerbation: Qualified Codes: J45.901 - Unspecified asthma with (acute) exacerbation David Freitas MD Sep 26, 2017 11:17
[2017-09-26] MEDS: SODIUM CHLORIDE 0.9% FLUSH 10 ML FLUSH IV FLUSH SCH ×2 (11:25→20:45)
--- NOTE | 2017-09-26 14:09 | EKG ---
Date Performed: 09/25/2017 Time Performed: 14:10:39 PTAGE: 67 years EKG: Sinus rhythm NORMAL ECG Compared to prior tracing no significant change PREVIOUS TRACING : 08/28/2016 13.14 DOCTOR: Leon Cid Interpretating Date/Time 09/26/2017 14:07:53
[2017-09-26] MEDS: LEVOFLOXACIN 750 MG PREMIX INJ 150 ML IV SCH (16:09)
[2017-09-27] MEDS: methylPREDNISolone SOD SUCC 40 MG/1 ML VIAL IV PUSH SCH ×2 (01:21→04:59)
[2017-09-27] MEDS: RESP: ALBUTEROL 2.5 MG/IPRATROPIUM 0.5 MG NEB (SCH) NEB ×3 (03:30→11:05)
[2017-09-27 05:17] VITALS: BP 122/57; PULSE 76; RESP 18; TEMP 98.3; O2SAT 92
[2017-09-27 08:29] VITALS: BP 135/63; PULSE 73; RESP 22; TEMP 98.3; O2SAT 94
[2017-09-27] MEDS: SODIUM CHLORIDE 0.9% FLUSH 10 ML FLUSH IV FLUSH SCH (09:00)
[2017-09-27] MEDS ORDERED: PRED20 PO (10:02)
[2017-09-27] MEDS ORDERED: LACTTAB8 PO (10:02)
[2017-09-27] MEDS ORDERED: LEVA750T9 PO (10:02)
--- NOTE | 2017-09-27 10:04 | HHI.DS ---
Discharge Summary Admission Date Sep 25, 2017 at 15:36 Discharge Date: Sep 27, 2017 Admitting Diagnosis outpatient treatment failure, asthma exacerbation (1) Asthma exacerbation ICD Code: J45.901 - Unspecified asthma with (acute) exacerbation Diagnosis: Principal Status: Acute (2) Failure of outpatient treatment ICD Code: Z78.9 - Other specified health status Diagnosis: Principal Status: Acute (3) Acute diverticulitis ICD Code: K57.92 - Diverticulitis of intestine, part unspecified, without perforation or abscess without bleeding Diagnosis: Principal Status: Acute Procedures None Brief History - From Admission This is a 67-year-old female past medical history of asthma who presented with shortness of breathing. Patient stated that she was seen prior from this admission in the emergency department in which she was diagnosed with acute bronchitis and was put on azithromycin and prednisone Dosepak. She says she not get better so she went back to the emergency department. Patient stated shortness of breathing worsened and she has a cough. Denies any fevers or chills. Patient also continues to smoke about half a pack per day for the past 50 years. When she presented in emergency department her oxygenation was 95% on room air. All other review of system reviewed and negative. CBC/BMP: 09/26/17 0559 09/26/17 0559 Significant Findings Laboratory Tests Test 09/25/17 14:05 09/25/17 14:10 09/26/17 05:59 White Blood Count 14.9 TH/MM3 (4.0-11.0) 14.2 TH/MM3 (4.0-11.0) Neutrophils (%) (Auto) 81.8 % (16.0-70.0) Neutrophils # (Auto) 12.2 TH/MM3 (1.8-7.7) Monocytes # (Auto) 1.2 TH/MM3 (0-0.9) Neutrophils % (Manual) 82 % (16-70) Lymphocytes % 4 % (9-44) Monocytes % 10 % (0-8) Neutrophils # (Manual) 12.8 TH/MM3 (1.8-7.7) Metamyelocytes 2 % (0-1) Keratocytes OCC (NORMAL) Blood Urea Nitrogen 20 MG/DL (7-18) Random Glucose 107 MG/DL (74-106) 147 MG/DL (74-106) Chloride Level 108 MEQ/L (98-107) 108 MEQ/L (98-107) Troponin I LESS THAN 0.02 NG/ML Activated Partial Thromboplast Time 20.7 SEC (24.3-30.1) Red Blood Count 3.97 MIL/MM3 (4.00-5.30) Estimat Glomerular Filtration Rate 80 ML/MIN (>89) Hospital Course Mrs. Alvares is a 67-year-old female. She has a history of asthma and possibly underlying COPD given a history of smoking. She came into the hospital secondary to exacerbation of her asthma/COPD. Hypoxia was present. She is unable to tolerate exertion at the time of admit. Asthma/COPD exacerbation was etiology and it was likely triggered by an underlying bronchitis. She had tried azithromycin as an outpatient and inhaler with oral steroids but had no benefit. She was transitioned to Levaquin and had IV steroids and nebulized treatments. Over the past 2 days she has significantly improved. She is now able to ambulate without oxygen and without hypoxia. Medically stable today for transition back to home with oral treatments. Pt Condition on Discharge: Stable Discharge Disposition: Discharge Home Discharge Time: <= 30 minutes Discharge Instructions DIET: Follow Instructions for: As Tolerated, No Restrictions Activities you can perform: Regular-No Restrictions Follow up Referrals: PCP Follow-up - 2 Weeks New Medications: Lactobacillus Acidophilus (Lactobacillus Acidophilus) 1 Billion Cell Tab 1 TAB PO TIDAC for Nutritional Supplement, #30 TAB 0 Refills Levofloxacin (Levaquin) 750 Mg Tablet 750 MG PO DAILY for Infection, #5 TAB 0 Refills Prednisone (Prednisone) 20 Mg Tab 20 MG PO DAILY for Inflammation, #3 TAB 0 Refills Continued Medications: Guaifenesin ER 12 HR (Guaifenesin ER 12 HR) 1,200 Mg Ronn 1200 MG PO BID for Chest Congestion/Cough, #30 TAB 0 Refills Prednisone (48) 10 mg tab Dose Pack (Prednisone (48) 10 mg tab Dose Pack) 10 Mg Dspk 10 MG PO DIRECTED for Inflammation, #1 DSPK 0 Refills [Albuterol Inhaler] () Discontinued Medications: Azithromycin (Zithromax) 250 Mg Tab 250 MG PO DAILY for Infection for 4 Days, #4 TAB 0 Refills starting tomorrow, 09/21 David Freitas MD Sep 27, 2017 10:04
== END 2017-09-27 11:34 | disposition home or self-care (01) ==
LOC: NEPD 13:00 → NEDA 15:36 → NEPFCDU 16:24
PROVIDERS: ADMIT Hospitalist; ATTEND Hospitalist
DX: J45.901 Unspecified asthma with (acute) exacerbation (principal); J44.1 Chronic obstructive pulmonary disease with (acute) exacerbation; R07.89 Other chest pain; K57.92 Diverticulitis of intestine, part unspecified, without perforation or abscess without bleeding; F17.210 Nicotine dependence, cigarettes, uncomplicated; Z79.899 Other long term (current) drug therapy
CPT/HCPCS: 71010; 80048; 83735; 84484; 85007; 85027; 85379; 85610; 85730; 93005; 94620; 94640; 94664; 96365; 96366; 96375; 96376; 99285; G0378; J1956; J2920; J7613

== ENCOUNTER 2018-08-27 19:12 | Observation (INO) ==
[2018-08-27] MEDS ORDERED: MethylPREDNISolone Sod Succinate Inj 125 MG/2 ML Vial IV.PUSH ONE (19:45)
--- NOTE | 2018-08-27 19:52 | ED ---
HPI General Chief Complaint: Respiratory Symptoms Stated Complaint: Resp Time Seen by Provider: 08/27/18 19:26 Source: patient and RN notes reviewed Mode of arrival: ambulatory Limitations: no limitations History of Present Illness 68-year-old female presents to the emergency department for evaluation of shortness of breath. She has history of asthma. Patient states her shortness of breath has been ongoing for 1 week, worsening. She was recently [place] on vacation and went to hospital up there. She was placed on azithromycin and prednisone. She states she did improve on the medications, but has been worsening since. Patient came back from [place] on Friday. She denies any history of DVT or PE. She saw her primary care physician on Friday who gave her a nebulizer and treatments, but she states these are not helping her. She reports chest pain with coughing only. Moderate severity. She is not currently on prednisone. MD Complaint: Reports shortness of breath and cough Onset (ago): week(s) (1) Context: Reports recent travel Severity: moderate Consistency/Duration: constant Relieving factors: nothing Exacerbating factors: cold air Known history of: Reports asthma; Denies congestive heart failure and PE Associated symptoms: Reports cough and wheezing; Denies fever, lower extremity pain, palpitations, hemoptysis, nausea/vomiting, abdominal pain, dizziness and lightheadedness Treatment prior to arrival: Reports bronchodilator Related Data Home Medications Medication Instructions Recorded Confirmed No Known Home Medications 08/27/18 08/27/18 Allergies Allergy/AdvReac Type Severity Reaction Status Date / Time nitrofurantoin Allergy Severe Anaphylaxis Verified 08/27/18 19:32 Review of Systems ROS: all other systems reviewed are negative [facility] Medical History Medical History Asthma (Acute) COPD (chronic obstructive pulmonary disease) (Acute) Surgical History Surgical History History of appendectomy (Acute) History of bowel resection (Acute) History of knee surgery (Acute) Social History Social History Substance History: No History of Abuse Second Hand Smoke Exposure: No Smoking Status: Former smoker (Has smoked on and off since she was 17 years old. She quit smoking 3 weeks ago when she started feeling short of breath) How Often Do You Have a Drink Containing Alcohol: Never Recent Travel in [facility] within the Last 8 Weeks: No Recent Out of Country Travel within the Last 8 Weeks: No Immunization History Tetanus Immunization: Unsure Exam Narrative Exam Narrative: GENERAL: Well-nourished, well-developed female patient, afebrile. SKIN: Focused skin assessment warm/dry. HEAD: Normocephalic. Atraumatic. EYES: No scleral icterus. No injection or drainage. NECK: Supple, trachea midline. No JVD or lymphadenopathy. CARDIOVASCULAR: Regular rhythm without murmurs, gallops, or rubs. Patient is tachycardic. RESPIRATORY: Breath sounds equal bilaterally. Positive accessory muscle use. Patient has no shortness or wheezes throughout. She is to tachypneic on exam GASTROINTESTINAL: Abdomen soft, non-tender, nondistended. MUSCULOSKELETAL: No cyanosis, or edema. BACK: Nontender without obvious deformity. No CVA tenderness. Course Initial Documented Vital Signs Temperature 97.8 F 08/27/18 19:18 Pulse Rate 54 L 08/27/18 19:18 Respiratory Rate 24 08/27/18 19:18 Blood Pressure 136/71 08/27/18 19:18 Pulse Oximetry 96 08/27/18 19:18 Last Documented Vital Signs Temperature 98.4 F 08/28/18 04:00 Pulse Rate 70 08/28/18 07:38 Respiratory Rate 16 08/28/18 07:38 Blood Pressure 111/53 L 08/28/18 04:00 Pulse Oximetry 93 L 08/28/18 04:00 Medical Decision Making ARIAN Attestation ARIAN supervised visit: Yes Attestation: I, Dr. Pacheco, have reviewed the advance practice practitioner's documentation and am in agreement, met with the patient face to face, made the diagnosis, and the medical decision making was done by me. *My assessment and Findings: Acute exacerbation of asthma 21:05 PM. Patient was seen by my boilermaker's assistant and me. Diagnosis acute exacerbation of asthma. Patient was given albuterol Atrovent unit dose treatment x3 and Solu-Medrol IV. Patient still has a lot of wheezing and shortness of breath. Patient will be admitted for continuous treatment. MDM Narrative Medical decision making narrative: 68-year-old female presents to the emergency department for shortness of breath with history of asthma. She reports no improvement with nebulizers. She is tachypneic, tachycardic, wheezing on exam. She recently traveled to [place]. IV access obtained. EKG, CBC, CMP, BNP, magnesium, CK, troponin, PTT, PT/INR, d-dimer, chest x-ray are ordered and pending. Patient is given DuoNeb x3, Solu-Medrol [address] Pacheco will resume care of patient. Medical Screen Exam Complete: Yes Emergency Medical Condition: Yes Differential Diagnosis Differential Diagnosis: Asthma exacerbation versus pneumonia versus ACS versus PE vs. CHF Medical Records Medical records reviewed: Yes I reviewed the patient's medical records. Lab Data Lab results reviewed: Yes I reviewed the patient's lab results. Result diagrams: 08/27/18 19:55 08/27/18 19:55 Lab Results 08/27/18 08/27/18 08/27/18 Range/Units 19:55 19:55 19:55 WBC 10.2 (4.0-11.0) th/mm3 RBC 4.63 (4.00-5.30) mil/mm3 Hgb 14.4 (11.6-15.3) gm/dL Hct 42.4 (35.0-46.0) % MCV 91.4 (80.0-100.0) fL MCH 31.0 (27.0-34.0) pg MCHC 33.9 (32.0-36.0) % RDW 13.8 (11.6-17.2) % Plt Count 253 (150-450) th/mm3 MPV 8.1 (7.0-11.0) fL Neut % (Auto) 58.4 (16.0-70.0) % Lymph % (Auto) 24.4 (9.0-44.0) % [place] % (Auto) 5.2 (0.0-8.0) % Eos % (Auto) 11.6 H (0.0-4.0) % Baso % (Auto) 0.4 (0.0-2.0) % Neut # (Auto) 5.9 (1.8-7.7) th/mm3 Lymph # (Auto) 2.5 (1.0-4.8) th/mm3 [place] # (Auto) 0.5 (0.0-0.9) th/mm3 Eos # (Auto) 1.2 H (0.0-0.4) th/mm3 Baso # (Auto) 0.0 (0.0-0.2) th/mm3 WBC Differential . Differential Comment Auto diff final PT 10.2 (9.8-11.6) sec INR 1.0 Ratio APTT 21.9 L (23.4-31.7) sec D-Dimer Quant (PE/DVT) 0.51 H (0.00-0.50) mg/L FEU Sodium 143 (136-145) meq/L Potassium 4.1 (3.5-5.1) meq/L Chloride 111 H (98-107) meq/L Carbon Dioxide 25.5 (21.0-32.0) meq/L Anion Gap 7 (5-15) meq/L BUN 14 (7-18) mg/dL Creatinine 0.99 (0.50-1.00) mg/dL Estimated GFR 55 L (>89) mL/min Random Glucose 108 H (74-106) mg/dL Calcium 9.3 (8.5-10.1) mg/dL Magnesium 2.0 (1.5-2.5) mg/dL Total Bilirubin 0.4 (0.2-1.0) mg/dL AST 22 (15-37) U/L ALT 26 (10-53) U/L Alkaline Phosphatase 77 (45-117) U/L Total Creatine Kinase 209 H (26-192) U/L CK-MB (CK-2) 4.2 H (0.5-3.6) ng/mL CK-MB (CK-2) % 2.0 (0.0-4.0) % Troponin I Less than 0.02 L (0.02-0.05) ng/mL B-Natriuretic Peptide (0-100) pg/mL Total Protein 6.7 (6.4-8.2) g/dL Albumin 3.8 (3.4-5.0) g/dL 08/27/18 Range/Units 19:55 WBC (4.0-11.0) th/mm3 RBC (4.00-5.30) mil/mm3 Hgb (11.6-15.3) gm/dL Hct (35.0-46.0) % MCV (80.0-100.0) fL MCH (27.0-34.0) pg MCHC (32.0-36.0) % RDW (11.6-17.2) % Plt Count (150-450) th/mm3 MPV (7.0-11.0) fL Neut % (Auto) (16.0-70.0) % Lymph % (Auto) (9.0-44.0) % [place] % (Auto) (0.0-8.0) % Eos % (Auto) (0.0-4.0) % Baso % (Auto) (0.0-2.0) % Neut # (Auto) (1.8-7.7) th/mm3 Lymph # (Auto) (1.0-4.8) th/mm3 [place] # (Auto) (0.0-0.9) th/mm3 Eos # (Auto) (0.0-0.4) th/mm3 Baso # (Auto) (0.0-0.2) th/mm3 WBC Differential Differential Comment PT (9.8-11.6) sec INR Ratio APTT (23.4-31.7) sec D-Dimer Quant (PE/DVT) (0.00-0.50) mg/L FEU Sodium (136-145) meq/L Potassium (3.5-5.1) meq/L Chloride (98-107) meq/L Carbon Dioxide (21.0-32.0) meq/L Anion Gap (5-15) meq/L BUN (7-18) mg/dL Creatinine (0.50-1.00) mg/dL Estimated GFR (>89) mL/min Random Glucose (74-106) mg/dL Calcium (8.5-10.1) mg/dL Magnesium (1.5-2.5) mg/dL Total Bilirubin (0.2-1.0) mg/dL AST (15-37) U/L ALT (10-53) U/L Alkaline Phosphatase (45-117) U/L Total Creatine Kinase (26-192) U/L CK-MB (CK-2) (0.5-3.6) ng/mL CK-MB (CK-2) % (0.0-4.0) % Troponin I (0.02-0.05) ng/mL B-Natriuretic Peptide 74 (0-100) pg/mL Total Protein (6.4-8.2) g/dL Albumin (3.4-5.0) g/dL Imaging Data Attestation: I personally reviewed and interpreted this imaging study as follows : Radiologist's impression: Chest X-Ray 08/27/18 19:45 CONCLUSION: No active disease. Mild scoliosis. Discharge Plan Discharge Disposition Patient Disposition: 30 Still Patient Discharge Details Diagnosis: Acute asthma exacerbation Physicians Team ED Provider: Kwasi Pacheco ED Midlevel Provider: Elsa Peterson Primary Care Provider: Tona Forte Attending Provider: Ebony Fleming Other Providers: [facility],Insurance Status ED Status: Left Department Discharge Information Discharge Date/Time: 08/27/18 23:56
[2018-08-27 20:29] LABS: Baso % (Auto) 0.4 % (0.0-2.0); Eos # (Auto) 1.2 th/mm3 (0.0-0.4); Eos % (Auto) 11.6 % (0.0-4.0); Hematocrit 42.4 % (35.0-46.0); Hemoglobin 14.4 gm/dL (11.6-15.3); Lymph # (Auto) 2.5 th/mm3 (1.0-4.8); Lymph % (Auto) 24.4 % (9.0-44.0); Mean Corpuscular HGB Conc 33.9 % (32.0-36.0); Mean Corpuscular Volume 91.4 fL (80.0-100.0); Mean Platelet Volume 8.1 fL (7.0-11.0); Mono # (Auto) 0.5 th/mm3 (0.0-0.9); Mono % (Auto) 5.2 % (0.0-8.0); Neut # (Auto) 5.9 th/mm3 (1.8-7.7); Neut % (Auto) 58.4 % (16.0-70.0); Platelet Count 253 th/mm3 (150-450); Red Blood Count 4.63 mil/mm3 (4.00-5.30); Red Cell Distribution Width 13.8 % (11.6-17.2); White Blood Count 10.2 th/mm3 (4.0-11.0)
--- NOTE | 2018-08-27 20:34 | XR ---
EXAM DATE: 08/27/2018 8:26 PM EST AGE/SEX: 68 years / Female INDICATIONS: Short of breath. CLINICAL DATA: This is the patient's initial encounter. Patient reports that signs and symptoms have been present for 3 days and indicates a pain score of 0/10. MEDICAL/SURGICAL HISTORY: Asthma. None. COMPARISON: No prior exams available for comparison. FINDINGS: A single AP view of the chest demonstrates the lungs to be symmetrically aerated without evidence of mass, infiltrate or effusion. The cardiomediastinal contours are unremarkable. Osseous structures a re intact. CONCLUSION: No active disease. Mild scoliosis. Electronically signed by: Gucci Abarca MD 08/27/2018 8:33 PM EST
[2018-08-27 20:39] LABS: Albumin 3.8 g/dL (3.4-5.0); Anion Gap 7 meq/L (5-15); Aspartate Aminotransferase 22 U/L (15-37); Blood Urea Nitrogen 14 mg/dL (7-18); Calcium 9.3 mg/dL (8.5-10.1); Carbon Dioxide 25.5 meq/L (21.0-32.0); Chloride 111 meq/L (98-107); Glomerular Filtration Rate 55 mL/min (>89); Glucose,Random 108 mg/dL (74-106); Potassium 4.1 meq/L (3.5-5.1); Sodium 143 meq/L (136-145)
[2018-08-27 20:40] LABS: Alanine Aminotransferase 26 U/L (10-53)
[2018-08-27 20:44] LABS: Alkaline Phosphatase 77 U/L (45-117); Creatine Kinase 209 U/L (26-192); Total Protein 6.7 g/dL (6.4-8.2)
[2018-08-27 20:46] LABS: Activated Partial Thrombo Time 21.9 sec (23.4-31.7); Prothrombin Time 10.2 sec (9.8-11.6)
[2018-08-27 20:48] LABS: D-Dimer 0.51 mg/L FEU (0.00-0.50)
[2018-08-27 20:56] LABS: Creatine Kinase MB 4.2 ng/mL (0.5-3.6)
--- NOTE | 2018-08-27 21:32 | P.HPFP ---
History of Present Illness Primary Care Physician: Tona Forte <Ebony Fleming R - 08/28/18 11:52> Tona Forte <MattAnnette hardwick U - 08/27/18 22:40> History of Present Illness: Patient is a 68-year-old female with a past medical history of asthma that presents to the [facility] ED with a chief complaint of shortness of breath that has been going on since 14 August, which is about 2 weeks. She started feeling short of breath 3 days before she traveled to [place] for her grandson's first birthday. [place], she could barely breathe. The next day her daughter took her to a local ER in [place] where she was found to be wheezing. A chest x-ray was done and she was prescribed steroids, Z-Roger, and breathing treatments. She felt much better and was discharged home from the emergency department. She was able to manage somewhat when she was in [place] but still did not feel back to her baseline. When she came back home a week ago, she went to see her doctor who started her on twice daily nebulizer treatments. She also went through another course of antibiotics and steroids for 5 days but she kept coughing all night with some sputum production and was very short of breath with any activity which prompted her decision to come to the ED. Patient states that she has had asthma since she was a child and would have bronchitis once in a while that will transition to a full-blown asthma exacerbation. She did well most of her life until May 2017 when she had a bad asthma exacerbation. She also had another exacerbation in September and June of this year. In June she was admitted for 2 nights to the observation unit at [facility]. She is not on any maintenance medications for asthma. She just established with her PCP newly and did not have any PCP for several months. She is self-pay. <Annette Hughes U - 08/28/18 00:14> - Diagnosis (1) Acute asthma exacerbation (2) COPD (chronic obstructive pulmonary disease) <Ebony Fleming R - 08/28/18 11:52> (1) Acute asthma exacerbation (2) COPD (chronic obstructive pulmonary disease) <Annette Hughes U - 08/28/18 00:14> Review of Systems Constitutional: Reports fatigue, Denies chills, Denies fever(s), Denies headache (s), Denies night sweats, Denies weight loss <[facility] 08/27/18 21:47> Eyes: Denies blurry vision, Denies change in vision, Denies double vision <[facility] 08/27/18 21:47> Ears, Nose, Mouth, and Throat: Reports post nasal drip, Denies nasal discharge, Denies sore throat <[facility] 08/27/18 21:47> Cardiovascular: Reports shortness of breath, Reports shortness of breath with activity, Denies chest pain <[facility] 08/27/18 21:47> Respiratory: Reports cough, Denies pain on inspiration <[facility] 21:47> Gastrointestinal: Denies abdominal pain, Denies constipation, Denies nausea, Denies vomiting <[facility] 08/27/18 21:47> Genitourinary: Denies blood in urine, Denies difficulty urinating, Denies vaginal discharge <[facility] 08/27/18 21:47> Musculoskeletal: Reports muscle cramps <[facility] 08/27/18 21:47> Neurologic: Denies headache(s) <[facility] 08/27/18 21:47> Endocrine: Reports increased thirst <[facility] 08/27/18 21:47> Hematologic/Lymphatic: Denies easy bleeding, Denies easy bruising <[facility] 08/27/18 21:47> PMFSH - History History Provided By: [facility]32> - Medical History Medical History: Medical History (Last Updated 08/27/18 @ 19:20 by Isatu Beck RN) Asthma COPD (chronic obstructive pulmonary disease) <Ebony Fleming - 08/28/18 11:52> Medical History (Last Updated 08/27/18 @ 19:20 by Isatu Beck RN) Asthma COPD (chronic obstructive pulmonary disease) <[facility] 08/27/18 22:46> - Surgical History Surgical History: Surgical History (Last Updated 08/27/18 @ 19:20 by Isatu Beck, RN) History of appendectomy History of bowel resection History of knee surgery <ShongueroEbony Donovan - 08/28/18 11:52> Surgical History (Last Updated 08/27/18 @ 19:20 by Isatu Beck, RN) History of appendectomy History of bowel resection History of knee surgery <Annette Hughes [facility] 08/27/18 21:32> - Tobacco History Smoking Status: Former smoker (Has smoked on and off since she was 17 years old. She quit smoking 3 weeks ago when she started feeling short of breath) < EllenAnnette Heck 08/27/18 22:46> - Alcohol History How Often Do You Have a Drink Containing Alcohol: Never <Annette Hughes [facility] 08/27 21:32> - Substance Use History Substance History: No History of Abuse <Annette Hughes [facility] 08/27/18 21:32> - Travel History Recent Travel in the [facility] Within the Last 8 Weeks: No <Annette Hughes [facility] 21:32> Recent Travel Out of the Country Within the Last 8 Weeks: No <Annette Hughes [facility] 08/27/18 21:32> - Immunization History Tetanus Immunization: Unsure <Annette Hughes [facility] 08/27/18 21:32> Medications and Allergies Allergies Allergy/AdvReac Type Severity Reaction Status Date / Time nitrofurantoin Allergy Severe Anaphylaxis Verified 08/27/18 19:32 <LonnieEbony Zion 08/28/18 11:52> Home Medications Medication Instructions Recorded Confirmed Type No Known Home Medications 08/27/18 08/27/18 History <LonnieEbony Zion 08/28/18 11:52> Active Medications: Active Medications Acetaminophen (Tylenol) 650 mg PO Q4H PRN PRN Reason: HEADACHE OR TEMP > 101 F Albuterol (Albuterol Neb (Prn)) 2.5 mg NEB Q2HR NEB PRN PRN Reason: SHORTNESS OF BREATH Albuterol (Duoneb Neb (Mariajose)) 1 ampul NEB Q4HR NEB MARIAJOSE Last Admin: 08/28/18 07:38 Dose: 1 ampul Benzonatate (Tessalon Perles) 200 mg PO Q8H PRN PRN Reason: Cough Last Admin: 08/28/18 08:21 Dose: 200 mg Enoxaparin Sodium (Lovenox Inj) 40 mg SQ Q24H [facility] Last Admin: 08/27/18 23:12 Dose: 40 mg Levofloxacin (Levaquin) 750 mg PO DAILY [facility] Stop: 08/29/18 23:59 Last Admin: 08/28/18 08:35 Dose: 750 mg Montelukast Sodium (Singulair) 10 mg PO HS [facility] Last Admin: 08/27/18 23:50 Dose: 10 mg Ondansetron HCl (Zofran Inj) 4 mg IV.PUSH Q6H PRN PRN Reason: NAUSEA OR VOMITING Pantoprazole Sodium (Protonix) 40 mg PO DAILY [facility] Last Admin: 08/28/18 08:35 Dose: 40 mg Prednisone (Deltasone) 40 mg PO DAILY [facility] Last Admin: 08/28/18 08:34 Dose: 40 mg Senna/Docusate Sodium (Xuan-Colace) 1 tab PO BID [facility] Last Admin: 08/28/18 08:35 Dose: Not Given Sodium Chloride (Ns Flush) 2 ml IV.FLUSH BID [facility] Last Admin: 08/28/18 08:35 Dose: 2 ml Sodium Chloride (Ns Flush) 2 ml IV.FLUSH PRN PRN PRN Reason: FLUSH AFTER USING IV ACCESS <Ebony Fleming R - 08/28/18 11:52> Exam Vital signs: Vital Signs 08/27/18 19:18 08/27/18 19:32 08/27/18 19:45 Temperature 97.8 F Pulse Rate 54 L 105 H 104 H Respiratory Rate 24 34 H 28 H Blood Pressure 136/71 194/72 H Pulse Oximetry 96 96 92 L 08/27/18 19:55 08/27/18 19:59 08/27/18 20:05 Temperature Pulse Rate 92 H 98 H Respiratory Rate 24 22 Blood Pressure Pulse Oximetry 96 08/27/18 20:41 08/27/18 22:40 08/27/18 23:44 Temperature Pulse Rate 95 H 94 H 54 L Respiratory Rate 24 25 H 18 Blood Pressure 137/63 146/77 H Pulse Oximetry 95 96 08/27/18 23:50 08/28/18 00:00 08/28/18 03:20 Temperature 97.7 F Pulse Rate 76 77 58 L Respiratory Rate 22 16 18 Blood Pressure 154/84 H 126/69 Pulse Oximetry 95 94 L 08/28/18 04:00 08/28/18 07:38 08/28/18 08:00 Temperature 98.4 F 97.9 F Pulse Rate 73 70 79 Respiratory Rate 16 16 18 Blood Pressure 111/53 L 125/60 Pulse Oximetry 93 L 94 L Intake & Output 08/27/18 08/28/18 08/28/18 18:59 06:59 18:59 Intake Total 240 / 240 Balance 240 / 240 Weight 67.132 kg Intake: Oral 240 / 240 Other: # Voids 2 Date of Last Bowel Movement 08/27/18 Weight On Admission 67.132 kg <Ebony Fleming R - 08/28/18 11:52> Vital Signs 08/27/18 19:18 08/27/18 19:32 08/27/18 19:45 Temperature 97.8 F Pulse Rate 54 L 105 H 104 H Respiratory Rate 24 34 H 28 H Blood Pressure 136/71 194/72 H Pulse Oximetry 96 96 92 L 08/27/18 19:55 08/27/18 19:59 08/27/18 20:05 Temperature Pulse Rate 92 H 98 H Respiratory Rate 24 22 Blood Pressure Pulse Oximetry 96 08/27/18 20:41 Temperature Pulse Rate 95 H Respiratory Rate 24 Blood Pressure 137/63 Pulse Oximetry 95 Intake & Output 08/27/18 08/27/18 08/28/18 06:59 18:59 06:59 Weight 67.132 kg <Annette Hughes U - 08/27/18 21:32> Narrative: GENERAL: Pleasant patient of stated age, sitting up in bed, appears mildly uncomfortable SKIN: No rashes, ecchymoses or lesions. Cool and dry. HEAD: Atraumatic. Normocephalic. EYES: Pupils equal round and reactive. Extraocular motions intact. No scleral icterus. No injection or drainage. ENT: Nose without bleeding, purulent drainage or septal hematoma. Airway patent. NECK: Trachea midline. No lymphadenopathy. Supple, nontender. CARDIOVASCULAR: Regular irregular rate and rhythm without murmurs, gallops, or rubs. RESPIRATORY: Clear to auscultation. Breath sounds equal bilaterally. Diffuse expiratory wheezes GASTROINTESTINAL: Abdomen soft, non-tender, without guarding. Positive bowel sounds, nondistended. No hepato-splenomegaly, or palpable masses. MUSCULOSKELETAL: Extremities without clubbing, cyanosis, or edema. No joint tenderness or effusion noted. No calf tenderness. NEUROLOGICAL: Awake and alert. Cranial nerves II through XII intact. Motor and sensory grossly within normal limits. Moves all extremities without difficulty. Normal speech. <EkoAnnette U - 08/27/18 22:46> Results - Labs Result diagrams: 08/28/18 09:55 08/28/18 09:55 <Ebony Fleming R - 08/28/18 11:52> Abnormal lab results 08/27/18 08/27/18 08/27/18 Range/Units 19:55 19:55 19:55 Neut % (Auto) (16.0-70.0) % Eos % (Auto) 11.6 H (0.0-4.0) % Neut # (Auto) (1.8-7.7) th/mm3 Eos # (Auto) 1.2 H (0.0-0.4) th/mm3 APTT 21.9 L (23.4-31.7) sec D-Dimer Quant (PE/DVT) 0.51 H (0.00-0.50) mg/L FEU Chloride 111 H (98-107) meq/L Estimated GFR 55 L (>89) mL/min Random Glucose 108 H (74-106) mg/dL Total Creatine Kinase 209 H (26-192) U/L CK-MB (CK-2) 4.2 H (0.5-3.6) ng/mL Troponin I Less than 0.02 L (0.02-0.05) ng/mL 08/28/18 08/28/18 08/28/18 Range/Units 09:55 09:55 09:55 Neut % (Auto) 86.2 H (16.0-70.0) % Eos % (Auto) (0.0-4.0) % Neut # (Auto) 8.4 H (1.8-7.7) th/mm3 Eos # (Auto) (0.0-0.4) th/mm3 APTT (23.4-31.7) sec D-Dimer Quant (PE/DVT) (0.00-0.50) mg/L FEU Chloride 109 H (98-107) meq/L Estimated GFR 59 L (>89) mL/min Random Glucose 125 H (74-106) mg/dL Total Creatine Kinase 201 H (26-192) U/L CK-MB (CK-2) (0.5-3.6) ng/mL Troponin I (0.02-0.05) ng/mL Short CBC 08/27/18 08/28/18 Range/Units 19:55 09:55 WBC 10.2 9.7 (4.0-11.0) th/mm3 Hgb 14.4 13.4 (11.6-15.3) gm/dL Hct 42.4 38.4 (35.0-46.0) % Plt Count 253 238 (150-450) th/mm3 [facility] 08/27/18 08/28/18 19:55 09:55 Sodium 143 141 Potassium 4.1 3.9 Chloride 111 H 109 H Carbon Dioxide 25.5 25.1 BUN 14 18 Creatinine 0.99 0.94 Calcium 9.3 9.0 Cardiac Enzymes 08/27/18 08/28/18 Range/Units 19:55 09:55 Total Creatine Kinase 209 H 201 H (26-192) U/L CK-MB (CK-2) 4.2 H 3.5 (0.5-3.6) ng/mL Troponin I Less than 0.02 L (0.02-0.05) ng/mL Liver Function 08/27/18 Range/Units 19:55 Total Bilirubin 0.4 (0.2-1.0) mg/dL AST 22 (15-37) U/L ALT 26 (10-53) U/L Alkaline Phosphatase 77 (45-117) U/L Albumin 3.8 (3.4-5.0) g/dL <Ebony Fleming - 08/28/18 11:52> Abnormal lab results 08/27/18 08/27/18 08/27/18 Range/Units 19:55 19:55 19:55 Eos % (Auto) 11.6 H (0.0-4.0) % Eos # (Auto) 1.2 H (0.0-0.4) th/mm3 APTT 21.9 L (23.4-31.7) sec D-Dimer Quant (PE/DVT) 0.51 H (0.00-0.50) mg/L FEU Chloride 111 H (98-107) meq/L Estimated GFR 55 L (>89) mL/min Random Glucose 108 H (74-106) mg/dL Total Creatine Kinase 209 H (26-192) U/L CK-MB (CK-2) 4.2 H (0.5-3.6) ng/mL Troponin I Less than 0.02 L (0.02-0.05) ng/mL Short CBC 08/27/18 Range/Units 19:55 WBC 10.2 (4.0-11.0) th/mm3 Hgb 14.4 (11.6-15.3) gm/dL Hct 42.4 (35.0-46.0) % Plt Count 253 (150-450) th/mm3 BMP 08/27/18 19:55 Sodium 143 Potassium 4.1 Chloride 111 H Carbon Dioxide 25.5 BUN 14 Creatinine 0.99 Calcium 9.3 Cardiac Enzymes 08/27/18 Range/Units 19:55 Total Creatine Kinase 209 H (26-192) U/L CK-MB (CK-2) 4.2 H (0.5-3.6) ng/mL Troponin I Less than 0.02 L (0.02-0.05) ng/mL Liver Function 08/27/18 Range/Units 19:55 Total Bilirubin 0.4 (0.2-1.0) mg/dL AST 22 (15-37) U/L ALT 26 (10-53) U/L Alkaline Phosphatase 77 (45-117) U/L Albumin 3.8 (3.4-5.0) g/dL <EkAnnette hardwick U - 08/27/18 21:32> - Imaging Impressions Chest X-Ray 08/27/18 19:45 CONCLUSION: No active disease. Mild scoliosis. <Ebony Fleming - 08/28/18 11:52> Impressions Chest X-Ray 08/27/18 19:45 CONCLUSION: No active disease. Mild scoliosis. <EkAnnette hardwick U - 08/27/18 21:32> - EKG Rate & rhythm: PVC's <EkAnnette hardwick U - 08/27/18 22:53> Caprini VTE Risk Assessment Caprini VTE Risk Assessment: No/Low Risk (score <= 1) <MattAnnette hardwick - 22:53> Christianrini Risk Assessment Model: Point Value = 1 Point Value = 2 Point Value = 3 Point Value = 5 Age 41-60 Minor surgery BMI > 25 kg/m2 Swollen legs Varicose veins or History of unexplained or recurrent spontaneous Oral contraceptives or hormone replacement Sepsis (< 1 month) Serious lung disease, including pneumonia (< 1 month) Abnormal pulmonary function Acute myocardial infarction Congestive heart failure (< 1 month) History of inflammatory bowel disease Medical patient at bed rest Age 61-74 Arthroscopic surgery Major open surgery (> 45 min) Laparoscopic surgery (> 45 min) Malignancy Confined to bed (> 72 hours) Immobilizing plaster cast Central venous access Age >= 75 History of VTE Family history of VTE Factor V Leiden Prothrombin [id number] Lupus anticoagulant Anticardiolipin antibodies Elevated serum homocysteine Heparin-induced thrombocytopenia Other congenital or acquired thrombophilia Stroke (< 1 month) Elective arthroplasty Hip, pelvis, or leg fracture Acute spinal cord injury (< 1 month) <Ebony Fleming - 08/28/18 11:52> Point Value = 1 Point Value = 2 Point Value = 3 Point Value = 5 Age 41-60 Minor surgery BMI > 25 kg/m2 Swollen legs Varicose veins or History of unexplained or recurrent spontaneous Oral contraceptives or hormone replacement Sepsis (< 1 month) Serious lung disease, including pneumonia (< 1 month) Abnormal pulmonary function Acute myocardial infarction Congestive heart failure (< 1 month) History of inflammatory bowel disease Medical patient at bed rest Age 61-74 Arthroscopic surgery Major open surgery (> 45 min) Laparoscopic surgery (> 45 min) Malignancy Confined to bed (> 72 hours) Immobilizing plaster cast Central venous access Age >= 75 History of VTE Family history of VTE Factor V Leiden Prothrombin [id number] Lupus anticoagulant Anticardiolipin antibodies Elevated serum homocysteine Heparin-induced thrombocytopenia Other congenital or acquired thrombophilia Stroke (< 1 month) Elective arthroplasty Hip, pelvis, or leg fracture Acute spinal cord injury (< 1 month) <Annette Hughes 08/27/18 21:32> Prophylaxis Regimen: Total Risk Factor Score Risk Level Prophylaxis Regimen 0-1 Low Early ambulation 2 Moderate Order ONE of the following: *Sequential Compression Device (SCD) *Heparin 5000 units SQ BID 3-4 Higher Order ONE of the following medications: *Heparin 5000 units SQ TID *Enoxaparin/Lovenox 40 mg SQ daily (WT < 150 kg, CrCl > 30 mL/min) *Enoxaparin/Lovenox 30 mg SQ daily (WT < 150 kg, CrCl > 10-29 mL/min) *Enoxaparin/Lovenox 30 mg SQ BID (WT < 150 kg, CrCl > 30 mL/min) AND/OR *Sequential Compression Device (SCD) 5 or more Highest Order ONE of the following medications: *Heparin 5000 units SQ TID (Preferred with Epidurals) *Enoxaparin/Lovenox 40 mg SQ daily (WT < 150 kg, CrCl > 30 mL/min) *Enoxaparin/Lovenox 30 mg SQ daily (WT < 150 kg, CrCl > 10-29 mL/min) *Enoxaparin/Lovenox 30 mg SQ BID (WT < 150 kg, CrCl > 30 mL/min) AND *Sequential Compression Device (SCD) <Ebony Fleming - 08/28/18 11:52> Total Risk Factor Score Risk Level Prophylaxis Regimen 0-1 Low Early ambulation 2 Moderate Order ONE of the following: *Sequential Compression Device (SCD) *Heparin 5000 units SQ BID 3-4 Higher Order ONE of the following medications: *Heparin 5000 units SQ TID *Enoxaparin/Lovenox 40 mg SQ daily (WT < 150 kg, CrCl > 30 mL/min) *Enoxaparin/Lovenox 30 mg SQ daily (WT < 150 kg, CrCl > 10-29 mL/min) *Enoxaparin/Lovenox 30 mg SQ BID (WT < 150 kg, CrCl > 30 mL/min) AND/OR *Sequential Compression Device (SCD) 5 or more Highest Order ONE of the following medications: *Heparin 5000 units SQ TID (Preferred with Epidurals) *Enoxaparin/Lovenox 40 mg SQ daily (WT < 150 kg, CrCl > 30 mL/min) *Enoxaparin/Lovenox 30 mg SQ daily (WT < 150 kg, CrCl > 10-29 mL/min) *Enoxaparin/Lovenox 30 mg SQ BID (WT < 150 kg, CrCl > 30 mL/min) AND *Sequential Compression Device (SCD) <Annette Hughes U - 08/27/18 21:32> Assessment and Plan - Assessment (1) Acute asthma exacerbation Code(s): J45.901 - Unspecified asthma with (acute) exacerbation Status: Acute (2) COPD (chronic obstructive pulmonary disease) Code(s): J44.9 - Chronic obstructive pulmonary disease, unspecified Status: Acute <Ebony Fleming Zion - 08/28/18 11:52> (1) Acute asthma exacerbation Code(s): J45.901 - Unspecified asthma with (acute) exacerbation Status: Acute Plan: -Long history of asthma with 3 exacerbations this year -Current episode has been going on for 2 weeks -Was tachypneic on admission, afebrile -O2 saturation in the mid 90s on room air/2L oxygen -Received 3 doses of DuoNeb and Solu-Medrol 125 mg IV in the ED with good response -Continue prednisone 40 mg p.o. daily -Continue DuoNeb treatments scheduled every 4 hours with albuterol nebulizer treatments every 2 hours as needed -Short dose of Levaquin 750 mg p.o. x 3 days due to prolonged nature of exacerbation -Start Singulair 10 mg p.o. at bedtime -[place] for cough -air sampling and monitoring with continuous pulse oximetry -Oxygen supplementation as needed -Patient will benefit from asthma maintenance therapy due to her history of 3 exacerbations this year, with 2 requiring hospitalization (2) COPD (chronic obstructive pulmonary disease) Code(s): J44.9 - Chronic obstructive pulmonary disease, unspecified Status: Acute Plan: -Not formally diagnosed with COPD -Suspicious due to patient's long history of smoking -Recommend pulmonary function tests after discharge when patient is back to baseline <Annette Hughes U - 08/28/18 00:14> - Assessment and Plan 76-year-old female with known history of asthma presents with shortness of breath and wheezing of 2 weeks duration, failed outpatient therapy. Differential diagnoses include asthma exacerbation, COPD exacerbation, pneumonia , PE, ACS, and CHF exacerbation. Patient's history and exam are most consistent with an asthma exacerbation. Chest x-ray obtained in the ED was negative for consolidation or infiltrate which rules out pneumonia. She will be admitted on observation for management with breathing treatments, steroids and a short course of Levaquin. EKG reviewed by me shows multiple PVCs but no ST changes suggestive of ACS. Will continue telemetry monitoring overnight. Wells score is 0, however D-dimer was ordered in the ED and was at high end of normal (0.51) with decision not to order a pulm angiogram due to low likelihood. CK slightly elevated at 209 with troponin <0.02 x1; BNP wnl at 74. Will repeat CK profile and EKG in the am. Fluids: oral fluids Electrolytes: Will monitor and replace as needed Nutrition: Regular adult diet DVT Prophylaxis: Lovenox 40mg SQ daily GI Prophylaxis: Protonix 40mg PO daily Constipation prophylaxis: Pericolace 1 tab PO BID <Annette Hughes - 08/28/18 00:20> Discussed Condition With: Discussed with ER doc Dr. Pacheco <Annette Hughes - 08/27/18 23:11> Discharge Planning: Plan to discharge home when patient is breathing well on room air and maintaining good oxygen saturations <Annette Hughes - 08/27/18 23:11> - Attending Attestation Patient dw the resident team -- agree with admission and assessment and plan as written <Ebony Fleming R - 08/28/18 11:52> <Annette Hughes U - Last Filed: 08/28/18 00:14> (1) Acute asthma exacerbation Qualifiers: Asthma severity: severe Asthma persistence: persistent Qualified Code(s): J45.51 - Severe persistent asthma with (acute) exacerbation <Ebony Fleming - Last Filed: 08/28/18 11:52> (1) Acute asthma exacerbation Qualifiers: Asthma severity: severe Asthma persistence: persistent Qualified Code(s): J45.51 - Severe persistent asthma with (acute) exacerbation <Annette Hughes U - Last Filed: 08/28/18 00:14> (1) Acute asthma exacerbation Qualifiers: Asthma severity: severe Asthma persistence: persistent Qualified Code(s): J45.51 - Severe persistent asthma with (acute) exacerbation <Ebony Fleming R - Last Filed: 08/28/18 11:52> (1) Acute asthma exacerbation Qualifiers: Asthma severity: severe Asthma persistence: persistent Qualified Code(s): J45.51 - Severe persistent asthma with (acute) exacerbation
[2018-08-27] MEDS ORDERED: Acetaminophen 325 MG Tablet PO PRN (22:16)
[2018-08-27] MEDS: levoFLOXacin 750 MG Tablet PO SCH (23:12)
[2018-08-27] MEDS: Enoxaparin Inj 40 MG/0.4 ML Syringe SQ SCH (23:12)
[2018-08-27] MEDS: Montelukast 10 MG Tablet PO SCH (23:50)
[2018-08-28] MEDS: Benzonatate 100 MG Capsule PO PRN ×2 (08:21→21:32)
[2018-08-28] MEDS: predniSONE 20 MG Tablet PO SCH (08:34)
[2018-08-28] MEDS: Senna/Docusate Sodium 8.6/50 MG Tablet PO SCH (08:35)
[2018-08-28] MEDS: levoFLOXacin 750 MG Tablet PO SCH (08:35)
[2018-08-28] MEDS ORDERED: levoFLOXacin 750 MG Tablet PO SCH (09:00)
[2018-08-28 10:41] LABS: Baso % (Auto) 0.1 % (0.0-2.0); Hematocrit 38.4 % (35.0-46.0); Hemoglobin 13.4 gm/dL (11.6-15.3); Lymph % (Auto) 10.3 % (9.0-44.0); Mean Corpuscular HGB Conc 34.9 % (32.0-36.0); Mean Corpuscular Hemoglobin 31.4 pg (27.0-34.0); Mean Platelet Volume 8.1 fL (7.0-11.0); Mono # (Auto) 0.3 th/mm3 (0.0-0.9); Mono % (Auto) 3.4 % (0.0-8.0); Neut # (Auto) 8.4 th/mm3 (1.8-7.7); Neut % (Auto) 86.2 % (16.0-70.0); Platelet Count 238 th/mm3 (150-450); Red Blood Count 4.27 mil/mm3 (4.00-5.30); Red Cell Distribution Width 13.7 % (11.6-17.2); White Blood Count 9.7 th/mm3 (4.0-11.0)
[2018-08-28 11:09] LABS: Carbon Dioxide 25.1 meq/L (21.0-32.0); Potassium 3.9 meq/L (3.5-5.1)
[2018-08-28 11:28] LABS: CKMB Percent 1.7 % (0.0-4.0); Creatine Kinase MB 3.5 ng/mL (0.5-3.6)
--- NOTE | 2018-08-28 11:57 | P.PNADD ---
Addendum to Inpatient Note Reason for Addendum: Additional Documentation Additional information: Please see resident H&P from 08/27/18 for full documentation of the patient admission and history. Patient was seen at 11:00am on 08/28/18. Overall the patient is feeling much better. She is off oxygen. She is able to ambulate in the room and to the bathroom with only minimal SOB. She is not SOB at rest. She continues to have the cough but this is improved. Reports no fevers/no chills/ CP/Nausea/Vomiting/Diarrhea Vital Signs Temp Pulse Resp BP Pulse Ox 08/28/18 08:00 97.9 F 79 18 125/60 94 L 08/28/18 07:38 70 16 08/28/18 04:00 98.4 F 73 16 111/53 L 93 L 08/28/18 03:20 58 L 18 08/28/18 00:00 97.7 F 77 16 126/69 94 L 08/27/18 23:50 76 22 154/84 H 95 08/27/18 23:44 54 L 18 08/27/18 22:40 94 H 25 H 146/77 H 96 08/27/18 20:41 95 H 24 137/63 95 08/27/18 20:05 98 H 22 08/27/18 19:59 96 08/27/18 19:55 92 H 24 08/27/18 19:45 104 H 28 H 92 L 08/27/18 19:32 105 H 34 H 194/72 H 96 08/27/18 19:18 97.8 F 54 L 24 136/71 96 Intake and Output 08/27/18 08/28/18 08/28/18 22:59 06:59 14:59 Intake Total 240 / 240 Balance 240 / 240 Intake: Oral 240 / 240 Other: # Voids 2 Date of Last Bowel Movement 08/27/18 Weight 67.132 kg 67.132 kg Weight On Admission 67.132 kg Abnormal lab results 08/27/18 08/27/18 08/27/18 Range/Units 19:55 19:55 19:55 Neut % (Auto) (16.0-70.0) % Eos % (Auto) 11.6 H (0.0-4.0) % Neut # (Auto) (1.8-7.7) th/mm3 Eos # (Auto) 1.2 H (0.0-0.4) th/mm3 APTT 21.9 L (23.4-31.7) sec D-Dimer Quant (PE/DVT) 0.51 H (0.00-0.50) mg/L FEU Chloride 111 H (98-107) meq/L Estimated GFR 55 L (>89) mL/min Random Glucose 108 H (74-106) mg/dL Total Creatine Kinase 209 H (26-192) U/L CK-MB (CK-2) 4.2 H (0.5-3.6) ng/mL Troponin I Less than 0.02 L (0.02-0.05) ng/mL 08/28/18 08/28/18 08/28/18 Range/Units 09:55 09:55 09:55 Neut % (Auto) 86.2 H (16.0-70.0) % Eos % (Auto) (0.0-4.0) % Neut # (Auto) 8.4 H (1.8-7.7) th/mm3 Eos # (Auto) (0.0-0.4) th/mm3 APTT (23.4-31.7) sec D-Dimer Quant (PE/DVT) (0.00-0.50) mg/L FEU Chloride 109 H (98-107) meq/L Estimated GFR 59 L (>89) mL/min Random Glucose 125 H (74-106) mg/dL Total Creatine Kinase 201 H (26-192) U/L CK-MB (CK-2) (0.5-3.6) ng/mL Troponin I (0.02-0.05) ng/mL GENERAL: SKIN: Warm and dry. HEAD: Atraumatic. Normocephalic. EYES: Pupils equal and round. No scleral icterus. No injection or drainage. ENT: No nasal bleeding or discharge. Mucous membranes pink and moist. NECK: Trachea midline. No JVD. CARDIOVASCULAR: Regular rate and rhythm. RESPIRATORY: No accessory muscle use. No increased work of breathing. She does have scattered wheezing throughout all lung [place] GASTROINTESTINAL: Abdomen soft, non-tender, nondistended. Hepatic and splenic margins not palpable. MUSCULOSKELETAL: Extremities without clubbing, cyanosis, or edema. No obvious deformities. NEUROLOGICAL: Awake and alert. No obvious cranial nerve deficits. Motor grossly within normal limits. Five out of 5 muscle strength in the arms and legs. Normal speech. PSYCHIATRIC: Appropriate mood and affect; insight and judgment normal. AP Asthma exacerbation -- pt also is smoker and on CXR her lungs are very hyperinflated. We are really dealing with a COPD picture at this time. At this time will start the patient on daily Spiriva with albuterol prn. Also start Singulair daily. Patient has had 4 exacerbations in less than a year and two of them have required hospitalization. DWPT she will need PFTs as an outpatient and close fu with her PCP. Will complete out 5 days PO steroid and 3 days 750mg Levaquin. If she continues to improve and passes her walk test she could potentially be discharged to home today. Patient seen and dw the resident team -- Dr. Hughes, Dr. South, Dr. Tijerina
--- NOTE | 2018-08-28 13:53 | ECG ---
Date Performed: 08/27/2018 Time Performed: 20:10:49 PTAGE: 68 years EKG: Sinus rhythm WITH OCCASIONAL ECTOPIC PREMATURE COMPLEXES BORDERLINE ECG Since the PREVIOUS TRACING , no significant change noted PREVIOUS TRACIN09/25/2017 14.10 DOCTOR: Cordell Walker Interpretating Date/Time 08/28/2018 13:48:17
[2018-08-28] MEDS ORDERED: Zolpidem Tartrate 5 MG Tablet PO PRN (14:53)
[2018-08-28] MEDS: Enoxaparin Inj 40 MG/0.4 ML Syringe SQ SCH (21:31)
[2018-08-28] MEDS: Montelukast 10 MG Tablet PO SCH (21:32)
[2018-08-29] MEDS: Senna/Docusate Sodium 8.6/50 MG Tablet PO SCH ×2 (01:11→08:31)
[2018-08-29 07:25] VITALS: BP 144/67; RESP 18; TEMP 97.9; O2SAT 95
[2018-08-29 07:55] VITALS: PULSE 79
[2018-08-29] MEDS: levoFLOXacin 750 MG Tablet PO SCH (08:31)
[2018-08-29] MEDS: predniSONE 20 MG Tablet PO SCH (08:32)
--- NOTE | 2018-08-29 09:58 | P.PNFP ---
Subjective Interval history: No acute events overnight. Vital signs remained stable on room air. Patient states that she is feeling better today occasional shortness of breath but much improved from admission. She denies any fever, chills, chest pain or shortness of breath. She still has a mildly productive cough but otherwise has no complaints. Patient feels comfortable going home today. <TijerinaKy Evan - 08/29/18 11:50> Results - Labs Result diagrams: 08/28/18 09:55 08/28/18 09:55 <Ebony Fleming - 08/30/18 09:45> Abnormal lab results 08/28/18 08/28/18 08/28/18 Range/Units 09:55 09:55 09:55 Neut % (Auto) 86.2 H (16.0-70.0) % Neut # (Auto) 8.4 H (1.8-7.7) th/mm3 Chloride 109 H (98-107) meq/L Estimated GFR 59 L (>89) mL/min Random Glucose 125 H (74-106) mg/dL Total Creatine Kinase 201 H (26-192) U/L Short CBC 08/28/18 Range/Units 09:55 WBC 9.7 (4.0-11.0) th/mm3 Hgb 13.4 (11.6-15.3) gm/dL Hct 38.4 (35.0-46.0) % Plt Count 238 (150-450) th/mm3 BMP 08/28/18 09:55 Sodium 141 Potassium 3.9 Chloride 109 H Carbon Dioxide 25.1 BUN 18 Creatinine 0.94 Calcium 9.0 Cardiac Enzymes 08/28/18 Range/Units 09:55 Total Creatine Kinase 201 H (26-192) U/L CK-MB (CK-2) 3.5 (0.5-3.6) ng/mL <Ky Tijerina B - 08/29/18 09:58> Physical Exam Vital signs: Intake & Output 08/29/18 08/30/18 08/30/18 18:59 06:59 18:59 Other: Date of Last Bowel Movement 08/27/18 <Ebony Fleming R - 08/30/18 09:45> Vital Signs 08/28/18 12:00 08/28/18 12:08 08/28/18 12:17 Temperature Pulse Rate 73 92 H Respiratory Rate 18 18 Blood Pressure 131/60 Pulse Oximetry 95 Pulse Oximetry [Exertion on Room Air] 97 Pulse Oximetry [Resting on Room Air] 97 08/28/18 16:00 08/28/18 17:02 08/28/18 19:34 Temperature 98.4 F Pulse Rate 76 71 89 Respiratory Rate 18 20 16 Blood Pressure 130/60 Pulse Oximetry 94 L Pulse Oximetry [Exertion on Room Air] Pulse Oximetry [Resting on Room Air] 08/28/18 20:00 08/29/18 04:00 08/29/18 07:23 Temperature 97.7 F 98.1 F 97.9 F Pulse Rate 73 70 74 Respiratory Rate 20 14 18 Blood Pressure 136/57 L 119/59 L 144/67 H Pulse Oximetry 95 91 L 95 Pulse Oximetry [Exertion on Room Air] Pulse Oximetry [Resting on Room Air] 08/29/18 07:53 Temperature Pulse Rate 79 Respiratory Rate 18 Blood Pressure Pulse Oximetry Pulse Oximetry [Exertion on Room Air] Pulse Oximetry [Resting on Room Air] Intake & Output 08/28/18 08/29/18 08/29/18 18:59 06:59 18:59 Intake Total 240 / 240 Balance 240 / 240 Intake: Oral 240 / 240 Other: # Voids 1 # Bowel Movements 0 <Ky Tijerina B - 08/29/18 09:58> Narrative: GENERAL: Pleasant patient of stated age, sitting up in bed, speaking in full sentences and answering questions appropriately SKIN: No rashes, ecchymoses or lesions. Cool and dry. HEAD: Atraumatic. Normocephalic. EYES: Pupils equal round and reactive. Extraocular motions intact. No scleral icterus. No injection or drainage. ENT: Nose without bleeding, purulent drainage or septal hematoma. Airway patent. NECK: Trachea midline. No lymphadenopathy. Supple, nontender. CARDIOVASCULAR: Regular irregular rate and rhythm without murmurs, gallops, or rubs. RESPIRATORY: Clear to auscultation. Breath sounds equal bilaterally. Occasional , faint expiratory wheeze appreciated in the left lower lung field GASTROINTESTINAL: Abdomen soft, non-tender, without guarding. Positive bowel sounds, nondistended. No hepato-splenomegaly, or palpable masses. MUSCULOSKELETAL: Extremities without clubbing, cyanosis, or edema. No joint tenderness or effusion noted. No calf tenderness. NEUROLOGICAL: Awake and alert. Cranial nerves II through XII intact. Motor and sensory grossly within normal limits. Moves all extremities without difficulty. Normal speech. <Ky Tijerina B - 08/29/18 11:50> Assessment and Plan - Assessment (1) Acute asthma exacerbation Code(s): J45.901 - Unspecified asthma with (acute) exacerbation Status: Acute (2) COPD (chronic obstructive pulmonary disease) Code(s): J44.9 - Chronic obstructive pulmonary disease, unspecified Status: Acute <ShonrochellechrisjenniEbony R - 08/30/18 09:45> (1) Acute asthma exacerbation Code(s): J45.901 - Unspecified asthma with (acute) exacerbation Status: Acute Plan: -Long history of asthma with 3 exacerbations this year -Current episode has been going on for 2 weeks -Was tachypneic on admission, afebrile -O2 saturation in the mid 90s on room air/2L oxygen -Received 3 doses of DuoNeb and Solu-Medrol 125 mg IV in the ED with good response -Continue prednisone 40 mg p.o. daily for total of 5 days -Continue DuoNeb treatments scheduled every 4 hours with albuterol nebulizer treatments every 2 hours as needed -Completed Short dose of Levaquin 750 mg p.o. x 3 days due to prolonged nature of exacerbation -Start Singulair 10 mg p.o. at bedtime -[place] for cough -Discharging patient on prednisone, Singulair, Symbicort. Patient states she has an albuterol inhaler at home as well as albuterol nebulizers. Instructed patient to continue the nebulizers every 4-6 hours while awake for the next several days. Encourage patient to follow-up with PCP to help manage her asthma long-term. (2) COPD (chronic obstructive pulmonary disease) Code(s): J44.9 - Chronic obstructive pulmonary disease, unspecified Status: Acute Plan: -Not formally diagnosed with COPD -Suspicious due to patient's long history of smoking -Recommend pulmonary function tests after discharge when patient is back to baseline (3) Arrhythmia Code(s): I49.9 - Cardiac arrhythmia, unspecified Status: Acute Plan: Patient presented with an irregular heartbeat She states that this is been worked up by her [place] [employer] [place] boat[employer] recently While on telemetry she had occasional PVCs as well as occasional spurts of bigeminy Has been asymptomatic during this hospitalization with no complaints of chest pain Recommending that she follow with her [employer] boatman within 1 week of discharge <Ky Tijerina - 08/29/18 11:45> - Assessment and Plan 76-year-old female with known history of asthma presents with shortness of breath and wheezing of 2 weeks duration, failed outpatient therapy. Differential diagnoses include asthma exacerbation, COPD exacerbation, pneumonia , PE, ACS, and CHF exacerbation. Patient's history and exam are most consistent with an asthma exacerbation. Chest x-ray obtained in the ED was negative for consolidation or infiltrate which rules out pneumonia. She will be admitted on observation for management with breathing treatments, steroids and a short course of Levaquin. EKG reviewed by me shows multiple PVCs but no ST changes suggestive of ACS. Telemetry showed occasional PVCs as well as occasional runs of bigeminy. ACS was ruled out. On hospital day 3 patient is stable and ready for discharge home. She has completed a 3-day course of Levaquin and will be discharged on p.o. prednisone to complete a 5-day course, Singulair, Symbicort and recommended albuterol nebulizer treatments every 4-6 hours while awake. Fluids: oral fluids Electrolytes: Will monitor and replace as needed Nutrition: Regular adult diet DVT Prophylaxis: Lovenox 40mg SQ daily GI Prophylaxis: Protonix 40mg PO daily Constipation prophylaxis: Pericolace 1 tab PO BID <Ky Tijerina - 08/29/18 11:50> - Attending Attestation Discussed with resident team -- Agree with assessment and plan as above <Ebony Fleming R - 08/30/18 09:45> <Ky Tijerina - Last Filed: 08/29/18 11:45> (1) Acute asthma exacerbation Qualifiers: Asthma severity: severe Asthma persistence: persistent Qualified Code(s): J45.51 - Severe persistent asthma with (acute) exacerbation <Ebony Fleming R - Last Filed: 08/30/18 09:45> (1) Acute asthma exacerbation Qualifiers: Asthma severity: severe Asthma persistence: persistent Qualified Code(s): J45.51 - Severe persistent asthma with (acute) exacerbation <Ky Tijerina B - Last Filed: 08/29/18 11:45> (1) Acute asthma exacerbation Qualifiers: Asthma severity: severe Asthma persistence: persistent Qualified Code(s): J45.51 - Severe persistent asthma with (acute) exacerbation <Ebony Fleming R - Last Filed: 08/30/18 09:45> (1) Acute asthma exacerbation Qualifiers: Asthma severity: severe Asthma persistence: persistent Qualified Code(s): J45.51 - Severe persistent asthma with (acute) exacerbation
--- NOTE | 2018-08-29 10:06 | P.DS ---
Date of admission: 08/27/18 22:16 Primary care physician: Tona Forte Brief History from admission: Patient is a 68-year-old female with a past medical history of asthma that presents to the [facility] ED with a chief complaint of shortness of breath that has been going on since 14 August, which is about 2 weeks. She started feeling short of breath 3 days before she traveled to [place] for her grandson's first birthday. [place], she could barely breathe. The next day her daughter took her to a local ER in [place] where she was found to be wheezing. A chest x-ray was done and she was prescribed steroids, Z-Roger, and breathing treatments. She felt much better and was discharged home from the emergency department. She was able to manage somewhat when she was in [place] but still did not feel back to her baseline. When she came back home a week ago, she went to see her doctor who started her on twice daily nebulizer treatments. She also went through another course of antibiotics and steroids for 5 days but she kept coughing all night with some sputum production and was very short of breath with any activity which prompted her decision to come to the ED. Patient states that she has had asthma since she was a child and would have bronchitis once in a while that will transition to a full-blown asthma exacerbation. She did well most of her life until May 2017 when she had a bad asthma exacerbation. She also had another exacerbation in September and June of this year. In June she was admitted for 2 nights to the observation unit at [facility]. She is not on any maintenance medications for asthma. She just established with her PCP newly and did not have any PCP for several months. She is self-pay. DS: Diagnosis - Discharge Diagnosis (1) Acute asthma exacerbation Status: Acute (2) COPD (chronic obstructive pulmonary disease) Status: Acute DS: Medications - Discharge Medications Prescriptions: benzonatate [Tessalon Perles] 200 mg PO Q8H PRN #42 cap PRN Reason: Cough montelukast 10 mg PO HS #30 tab prednisone 40 mg PO DAILY #4 tab tiotropium bromide [Spiriva Respimat] 2 puff INHALATION DAILY #1 inhaler DS: Summary Hospital Course: 76-year-old female with known history of asthma presented with shortness of breath and wheezing of 2 weeks duration, failed outpatient therapy. Differential diagnoses include asthma exacerbation, COPD exacerbation, pneumonia , PE, ACS, and CHF exacerbation. Patient's history and exam were most consistent with an asthma exacerbation. Chest x-ray obtained in the ED was negative for consolidation or infiltrate which rules out pneumonia. She was admitted on observation for management with breathing treatments, steroids and a short course of Levaquin. EKG reviewed showed multiple PVCs but no ST changes suggestive of ACS. Telemetry showed occasional PVCs as well as occasional runs of bigeminy. ACS was ruled out. 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 She states she had previously been worked up for an arrhythmia. On hospital day 3 patient was stable and ready for discharge home. She completed a home walk test and maintain her oxygen saturation. She completed a 3-day course of Levaquin and was be discharged on p.o. prednisone to complete a 5-day course, Singulair, Symbicort and recommended albuterol nebulizer treatments every 4-6 hours while awake. - Time Spent with Patient Total time spent providing and/or coordinating discharge services: Less than 30 minutes - Quality: VTE Deep Vein Thrombosis/Pulmonary Embolism Present on Admission: No Exam Vital signs: Vital Signs 08/28/18 12:00 08/28/18 12:08 08/28/18 12:17 Temperature Pulse Rate 73 92 H Respiratory Rate 18 18 Blood Pressure 131/60 Pulse Oximetry 95 Pulse Oximetry [Exertion on Room Air] 97 Pulse Oximetry [Resting on Room Air] 97 08/28/18 16:00 08/28/18 17:02 08/28/18 19:34 Temperature 98.4 F Pulse Rate 76 71 89 Respiratory Rate 18 20 16 Blood Pressure 130/60 Pulse Oximetry 94 L Pulse Oximetry [Exertion on Room Air] Pulse Oximetry [Resting on Room Air] 08/28/18 20:00 08/29/18 04:00 08/29/18 07:23 Temperature 97.7 F 98.1 F 97.9 F Pulse Rate 73 70 74 Respiratory Rate 20 14 18 Blood Pressure 136/57 L 119/59 L 144/67 H Pulse Oximetry 95 91 L 95 Pulse Oximetry [Exertion on Room Air] Pulse Oximetry [Resting on Room Air] 08/29/18 07:53 Temperature Pulse Rate 79 Respiratory Rate 18 Blood Pressure Pulse Oximetry Pulse Oximetry [Exertion on Room Air] Pulse Oximetry [Resting on Room Air] Intake & Output 08/28/18 08/29/18 08/29/18 18:59 06:59 18:59 Intake Total 240 / 240 Balance 240 / 240 Intake: Oral 240 / 240 Other: # Voids 1 # Bowel Movements 0 Narrative: GENERAL: Pleasant patient of stated age, sitting up in bed, speaking in full sentences and answering questions appropriately SKIN: No rashes, ecchymoses or lesions. Cool and dry. HEAD: Atraumatic. Normocephalic. EYES: Pupils equal round and reactive. Extraocular motions intact. No scleral icterus. No injection or drainage. ENT: Nose without bleeding, purulent drainage or septal hematoma. Airway patent. NECK: Trachea midline. No lymphadenopathy. Supple, nontender. CARDIOVASCULAR: Regular irregular rate and rhythm without murmurs, gallops, or rubs. RESPIRATORY: Clear to auscultation. Breath sounds equal bilaterally. Occasional , faint expiratory wheeze appreciated in the left lower lung field GASTROINTESTINAL: Abdomen soft, non-tender, without guarding. Positive bowel sounds, nondistended. No hepato-splenomegaly, or palpable masses. MUSCULOSKELETAL: Extremities without clubbing, cyanosis, or edema. No joint tenderness or effusion noted. No calf tenderness. NEUROLOGICAL: Awake and alert. Cranial nerves II through XII intact. Motor and sensory grossly within normal limits. Moves all extremities without difficulty. Normal speech. Results Procedures completed during hospitalization: None Labs on day of discharge: Labs from last 24 hours 08/28/18 08/28/18 08/28/18 09:55 09:55 09:55 WBC 9.7 RBC 4.27 Hgb 13.4 Hct 38.4 MCV 90.0 MCH 31.4 MCHC 34.9 RDW 13.7 Plt Count 238 MPV 8.1 Neut % (Auto) 86.2 H Lymph % (Auto) 10.3 [place] % (Auto) 3.4 Eos % (Auto) 0.0 Baso % (Auto) 0.1 Neut # (Auto) 8.4 H Lymph # (Auto) 1.0 [place] # (Auto) 0.3 Eos # (Auto) 0.0 Baso # (Auto) 0.0 WBC Differential . Differential Comment Auto diff final Sodium 141 Potassium 3.9 Chloride 109 H Carbon Dioxide 25.1 Anion Gap 7 BUN 18 Creatinine 0.94 Estimated GFR 59 L Random Glucose 125 H Calcium 9.0 Total Creatine Kinase 201 H CK-MB (CK-2) 3.5 CK-MB (CK-2) % 1.7 - Impressions ITS Impressions Chest X-Ray 08/27/18 19:45 CONCLUSION: No active disease. Mild scoliosis. Discharge Plan - Discharge Disposition Patient Disposition: Discharge Home - Discharge Condition Condition: Stable - Discharge Order Discharge Orders: Discharge Order (Routine); Ordered 08/29/18 Ordered By: Ky Tijerina - Physicians Team Primary Care Provider: Tona Forte Attending Provider: Ebony Fleming Other Providers: HCI,Insurance
--- NOTE | 2018-08-29 12:52 | ECG ---
Date Performed: 08/28/2018 Time Performed: 10:32:45 PTAGE: 68 years EKG: Sinus rhythm WITH FREQUENT ECTOPIC PREMATURE COMPLEXES NONSPECIFIC T-WAVE ABNORMALITY ABNORMAL RHYTHM ECG Since t he PREVIOUS TRACING , no significant change noted PREVIOUS TRACIN08/27/2018 20.10 DOCTOR: Cordell Walker Interpretating Date/Time 08/29/2018 12:50:30
== END 2018-08-29 11:30 | disposition home or self-care (01) ==
LOC: NEPD 19:12 → NEDA 21:30 → INTOOBSV 21:30 → NEPHCDU 23:47
PROVIDERS: ADMIT Family Medicine; ATTEND Family Medicine